=== PATIENT | male | born 1955 | race Hispanic/Latino ===

== ENCOUNTER 2018-09-26 01:44 | Emergency (ER) | payer OTHER ==
--- NOTE | 2018-09-26 03:37 | ER ---
Nurse's Notes [facility] Name: Kervin Martinez Age: 62 yrs Sex: Male : 1955 Arrival Date: 09/26/2018 Time: 01:51 Bed 7 Private MD: Javan Barrera B Diagnosis: Fever presenting with conditions classified elsewhere;Influenza due to other identified influenza virus Presentation: 09/26 02:03 Presenting complaint: Patient states: pt states he has had a cough, and sniffles with a bb runny nose x 2 days tonight he started running a fever it was 103 he has had a splenectomy in the past and told to come to ED if he starts running a fever. Transition of care: patient was not received from another setting of care. Onset of symptoms was September 24, 2018. Risk Assessment: Do you want to hurt yourself or someone else? Patient reports no desire to harm self or others. Initial Sepsis Screen: Does the patient meet any 2 criteria? No. Patient's initial sepsis screen is negative. Does the patient have a suspected source of infection? No. Patient's initial sepsis screen is negative. Care prior to arrival: None. 02:03 Method Of Arrival: Ambulatory bb 02:03 Acuity: PRABHAKAR 3 bb Historical: - Allergies: 02:08 No Known Allergies; bb - Home Meds: 02:08 Crestor 20 mg oral tab 1 tab once daily [Active]; Eliquis 5 mg oral tab 1 tab 2 times bb per day [Active]; metoprolol succinate 100 mg oral Tb24 1 tab once daily [Active]; Janumet 50-1,000 mg oral tab 1 tab 2 times per day [Active]; valsartan 80 mg oral tab 1 tab once daily [Active]; ProAir HFA inhalation inhalation [Active]; sildenafil oral oral [Active]; - PMHx: 02:08 Atrial Fib; Diabetes - IDDM; Hypertension; High Cholesterol; CVA; bb - PSHx: 02:08 splenectomy; bb - Immunization history:: Adult Immunizations up to date. - Social history:: Smoking status: Patient/guardian denies using tobacco. - Ebola Screening: : No symptoms or risks identified at this time. Screenin:42 Abuse screen: Denies threats or abuse. Denies injuries from another. Nutritional ak1 screening: No deficits noted. Tuberculosis screening: No symptoms or risk factors identified. Fall Risk None identified. Assessment: 02:15 General: Appears in no apparent distress. Behavior is calm, cooperative, appropriate lp1 for age. Pain: Denies pain. Neuro: Level of Consciousness is awake, alert, obeys commands. Cardiovascular: Patient's skin is warm and dry. Respiratory: Reports cough that is productive, labored breathing Respiratory effort is even, unlabored, Respiratory pattern is regular, symmetrical, Breath sounds are clear bilaterally. GI: No deficits noted. : No signs and/or symptoms were reported regarding the genitourinary system. EENT: Reports nasal congestion. Derm: Skin is pink, warm \T\ dry. Musculoskeletal: No deficits noted. Vital Signs: 02:08 BP 160 / 79; Pulse 83; Resp 16 S; Temp 98.8(O); Pulse Ox 96% on R/A; Weight 113.4 kg bb (R); Height 5 ft. 8 in. (172.72 cm) (R); Pain 0/10; 03:42 BP 141 / 81; Pulse 86; Resp 18; Temp 100(TE); Pulse Ox 95% on R/A; ak1 02:08 Body Mass Index 38.01 (113.40 kg, 172.72 cm) bb ED Course: 01:51 Patient arrived in ED. es 01:52 Javan Barrera MD is Private Physician. es 02:05 Triage completed. bb 02:08 Arm band placed on Patient placed in an exam room, on a stretcher, on pulse oximetry. bb Family accompanied patient. 02:11 Esteban Crandall MD is Attending Physician. 02:56 Sofi Vickers, IZABEL is Primary Nurse. lp1 03:43 Patient has correct armband on for positive identification. Bed in low position. Call ak1 light in reach. Side rails up X 1. Adult w/ patient. Pulse ox on. NIBP on. 03:43 No provider procedures requiring assistance completed. Patient did not have IV access ak1 during this emergency room visit. 04:37 XRAY Chest Pa And Lat (2 Views) In Process Unspecified. EDMS Administered Medications: No medications were administered Outcome: 03:36 Discharge ordered by . gs 03:43 Discharged to home ambulatory, with family. ak1 03:43 Condition: stable 03:43 Discharge instructions given to patient, family, Instructed on discharge instructions, follow up and referral plans. Demonstrated understanding of instructions, follow-up care. 03:44 Patient left the ED. ak1 Signatures: Dispatcher [employer] Anamaria Schaeffer Brenda RN RN bb Sofi Vickers RN RN lp1 Roseanne Nicholas RN RN ak1 Esteban Crandall MD MD
--- NOTE | 2018-09-26 03:37 | EDPHYS ---
Physician Documentation [facility] Name: Kervin Martinez Age: 62 yrs Sex: Male : 1955 Arrival Date: 09/26/2018 Time: 01:51 Bed 7 Private MD: Javan Barrera B ED Physician Esteban Crandall HPI: 09/26 03:31 This 62 yrs old Male presents to ER via Ambulatory with complaints of Fever. gs 03:31 Onset: The symptoms/episode began/occurred yesterday. Modifying factors: there are no gs obvious modifying factors. Associated signs and symptoms: Pertinent positives: chills, cough. Severity of symptoms: At their worst the symptoms were moderate in the emergency department the symptoms are unchanged. The patient has experienced similar episodes in the past, a few times. The patient has been recently seen by a physician: the patient's primary care provider, with similar presenting complaints, was given a prescription for antibiotics. Historical: - Allergies: 02:08 No Known Allergies; bb - Home Meds: 02:08 Crestor 20 mg oral tab 1 tab once daily [Active]; Eliquis 5 mg oral tab 1 tab 2 times bb per day [Active]; metoprolol succinate 100 mg oral Tb24 1 tab once daily [Active]; Janumet 50-1,000 mg oral tab 1 tab 2 times per day [Active]; valsartan 80 mg oral tab 1 tab once daily [Active]; ProAir HFA inhalation inhalation [Active]; sildenafil oral oral [Active]; - PMHx: 02:08 Atrial Fib; Diabetes - IDDM; Hypertension; High Cholesterol; CVA; bb - PSHx: 02:08 splenectomy; bb - Immunization history:: Adult Immunizations up to date. - Social history:: Smoking status: Patient/guardian denies using tobacco. - Ebola Screening: : No symptoms or risks identified at this time. ROS: 03:31 All other systems are negative. gs Exam: 03:31 Head/Face: Normocephalic, atraumatic. Eyes: Pupils equal round and reactive to light, gs extra-ocular motions intact. Lids and lashes normal. Conjunctiva and sclera are non-icteric and not injected. Cornea within normal limits. Periorbital areas with no swelling, redness, or edema. ENT: Nares patent. No nasal discharge, no septal abnormalities noted. Tympanic membranes are normal and external auditory canals are clear. Oropharynx with no redness, swelling, or masses, exudates, or evidence of obstruction, uvula midline. Mucous membranes moist. Neck: Trachea midline, no thyromegaly or masses palpated, and no cervical lymphadenopathy. Supple, full range of motion without nuchal rigidity, or vertebral point tenderness. No Meningismus. Chest/axilla: Normal chest wall appearance and motion. Nontender with no deformity. No lesions are appreciated. Cardiovascular: Regular rate and rhythm with a normal S1 and S2. No gallops, murmurs, or rubs. Normal PMI, no JVD. No pulse deficits. Respiratory: Lungs have equal breath sounds bilaterally, clear to auscultation and percussion. No rales, rhonchi or wheezes noted. No increased work of breathing, no retractions or nasal flaring. Abdomen/GI: Soft, non-tender, with normal bowel sounds. No distension or tympany. No guarding or rebound. No evidence of tenderness throughout. Back: No spinal tenderness. No costovertebral tenderness. Full range of motion. Skin: Warm, dry with normal turgor. Normal color with no rashes, no lesions, and no evidence of cellulitis. MS/ Extremity: Pulses equal, no cyanosis. Neurovascular intact. Full, normal range of motion. Neuro: Awake and alert, GCS 15, oriented to person, place, time, and situation. Cranial nerves II-XII grossly intact. Motor strength 5/5 in all extremities. Sensory grossly intact. Cerebellar exam normal. Normal gait. 03:31 Constitutional: The patient appears alert, awake. Vital Signs: 02:08 BP 160 / 79; Pulse 83; Resp 16 S; Temp 98.8(O); Pulse Ox 96% on R/A; Weight 113.4 kg bb (R); Height 5 ft. 8 in. (172.72 cm) (R); Pain 0/10; 03:42 BP 141 / 81; Pulse 86; Resp 18; Temp 100(TE); Pulse Ox 95% on R/A; ak1 02:08 Body Mass Index 38.01 (113.40 kg, 172.72 cm) bb MDM: 02:22 Patient medically screened. 03:31 Differential diagnosis: viral Infection, bacterial infection, URI, pneumonia. Data gs reviewed: vital signs, nurses notes, lab test result(s), radiologic studies. Counseling: I had a detailed discussion with the patient and/or guardian regarding: the historical points, exam findings, and any diagnostic results supporting the discharge/admit diagnosis, lab results, radiology results, the need for outpatient follow up. Response to treatment: the patient's symptoms have mildly improved after treatment, and as a result, I will discharge patient. 09/26 02:23 Order name: Influenza Screen (a \T\ B); Complete Time: 03:19 gs 09/26 02:23 Order name: XRAY Chest Pa And Lat (2 Views) gs Administered Medications: No medications were administered Disposition: 09/26/18 03:36 Discharged to Home. Impression: Fever presenting with conditions classified elsewhere, Influenza due to other identified influenza virus. - Condition is Stable. - Discharge Instructions: Fever, Adult, Influenza, Adult. - Medication Reconciliation Form, Thank You Letter, Antibiotic Education, Prescription Opioid Use form. - Follow up: Private Physician; When: 2 - 3 days; Reason: Re-evaluation by your physician. Signatures: Dispatcher [employer] EDJessica Chandler RN RN bb Roseanne Nicholas RN RN ak1 Esteban Crandall MD MD Corrections: (The following items were deleted from the chart) 03:44 03:36 09/26/2018 03:36 Discharged to Home. Impression: Fever presenting with conditions ak1 classified elsewhere; Influenza due to other identified influenza virus. Condition is Stable. Forms are Medication Reconciliation Form, Thank You Letter, Antibiotic Education, Prescription Opioid Use. Follow up: Private Physician; When: 2 - 3 days; Reason: Re-evaluation by your physician. gs
--- NOTE | 2018-09-26 11:45 | RAD REPORT ---
EXAM DESCRIPTION: RAD - Chest Pa And Lat (2 Views) - 09/26/2018 4:37 am CLINICAL HISTORY: COUGH Chest pain. COMPARISON: Chest Single View dated 12/19/2015; Chest Pa And Lat (2 Views) dated 11/16/2015; CHEST PA AND LAT 2 VIEW dated 07/11/2011 FINDINGS: The lungs are clear. The heart is mildly enlarged in size with a tortuous thoracic aorta. No displaced fractures. Small hiatal hernia.
== END 2018-09-26 03:44 | disposition home or self-care (01) ==
LOC: ER 01:44
DX: J10.1 Influenza due to other identified influenza virus with other respiratory manifestations (principal); I48.91 Unspecified atrial fibrillation; E11.9 Type 2 diabetes mellitus without complications; E78.00 Pure hypercholesterolemia, unspecified; Z79.4 Long term (current) use of insulin; Z79.01 Long term (current) use of anticoagulants; Z86.73 Personal history of transient ischemic attack (TIA), and cerebral infarction without residual deficits
CPT/HCPCS: 71046; 87804; 99283

== ENCOUNTER 2021-02-13 04:21 | Emergency (ER) | payer OTHER ==
--- OUTSIDE RECORDS SUMMARY | 2021-02-13 04:24 | XMS REPORT | Continuity of Care Document ---
:1955 Author Organization [facility] t Address [address] [place] [address] Care Team Providers Name Role Phone Zora Barrera MD Primary Care Physician Kathia KINGSLEY Attending Clinician Unavailable Eugenio Rojo MD Attending Clinician Nelson Zazueta MD Attending Clinician Dl Padilla MD Attending Clinician Zora Barrera Attending Clinician Payers Payer Name Policy Type Policy Number Effective Date Expiration Date S nikhil AETNA [id number] 2020 [facility] MEDICAREAETNA 00:00:00 Hospital MEDICARE HMO/PPO [id number] 1-PresentHMO Problems Condition Condition Condition Status Onset Resolution Last Treating Co mments Source Name Details Category Date Date Treatment Clinician Date Pure Pure Disease Active Methodi hyperchole hyperchole 5-15 st sterolemia sterolemia 00:00: Ho spita 00 l FRANNIE FRANNIE Disease Active Methodi (obstructi (obstructi 8-09 st ve sleep ve sleep 00:00: Hospit a apnea) apnea) 00 l SOB SOB Disease Active [facility] (shortness (shortness 7-30 st of breath) of breath) 00:00: [facility] 00 l Mitral Mitral Disease Active [facility] valve valve 7-30 st disease disease 00:00: Hospita 00 l Basal cell Basal cell Disease Active M ethodi carcinoma carcinoma 4-30 st 00:00: Hospita 00 l Vertigo Vertigo Disease Active 2016-06 Methodi due to due to 2-11 st cerebrovas cerebrovas 00:00: Ho spita cular cular 00 l disease disease Vertigo, Vertigo, Disease Active 2016-06 Metho di benign benign 2-11 st positional positional 00:00: Ho spita , , 00 l unspecifie unspecifie d d laterality laterality Aortic Aortic Disease Active 2016-06 [facility] valve valve 0-02 st disorder disorder 00:00: Hospit a 00 l 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 ethodi late late 3-27 st effect of effect of 00:00: [facility] cerebrovas cerebrovas 00 l cular cular accident accident Cerebral Cerebral Disease Active Metho di infarction infarction 3-27 st due to due to 00:00: Hospita thrombosis thrombosis 00 l of of precerebra precerebra l artery l artery 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 230 st vestibular vestibular 00:00: Ho spita hypofuncti hypofuncti 00 l on of both on of both ears ears Oscillopsi Oscillopsi Disease Active 2015-06 M ethodi a a [address] [facility] 00:00: Hospita 00 l Hyperlipid Hyperlipid Disease Active 2015-06 M ethodi emia LDL emia LDL 2-28 st goal <70 goal <70 00:00: Hospit a 00 l Ataxia due Ataxia due Disease Active 2015-06 M ethodi to to [address] cerebrovas cerebrovas 00:00: Ho spita cular cular 00 l disease disease Vertigo, Vertigo, Disease Active 2015-06 Metho di benign benign 2-28 st positional positional 00:00: Ho spita 00 l 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 00:00: Ho spita is is 00 l Essential Essential Disease Active 2015-06 Met hodi hypertensi hypertensi 2-23 st on on 00:00: Hospita 00 l Atrial Atrial Disease Active 2015-06 [facility] fibrillati fibrillati 2- st on on 00:00: Hospita 00 l Chronic Chronic Disease Active 2015-06 [facility] bacteremia bacteremia 0-22 st 00:00: Hospita 00 l Cerebrovas Cerebrovas Disease Active 2015-06 [facility] cular cular 0 st accident accident 00:00: Hospit a (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 Splenic Splenic Disease Active Methodi abscess abscess 12-20 st 00:00: Hospita 00 l DYSARTHRIA Diagnosis Active 2016-11-07 Memoria FOLLOWING 06-22 08:36:00 l CEREBRAL 08:00: Martínez INFACTION; DYSARTHRIA 00 FOLLOWING CEREBRAL INFACTION; Active 06/22/2000 [facility] DYSARTHRIA Diagnosis Active 2017-01-01 Memoria FOLLOWING 06-22 16:23:00 l CERBRAL 08:00: Martínez INFACTION; DYSARTHRIA 00 C FOLLOWING CERBRAL INFACTION; C Active 06/22/2000 [facility] DYSARTHRIA Diagnosis Active 2016-09-01 Memoria FOLLOWING 06-22 07:34:00 l CEREBRAL 08:00: [place] INFARCTION DYSARTHRIA 00 FOLLOWING CEREBRAL INFARCTION Active 06/22/2000 [facility] Cancer Cancer Disease Active Methodi Hospita l Allergies, Adverse Reactions, Alerts This patient has no known allergies or adverse reactions. Family History Family Member Diagnosis Comments Start Date Stop Date Source Natural father Cancer [facility] Natural mother Alzheimer's disease [facility] Social History Social Habit Start Date Stop Date Quantity Comments Source Cigarettes smoked 2020-11-02 [facility] 00:00:00 Hospita day) - Reported Cigarette 2020-11-02 2020-11-02 [facility] pack-years 00:00:00 00:00:00 Hospital Tobacco use and 2020-11-02 2020-11-02 Never used [facility] exposure 00:00:00 00:00:00 Hospital Alcohol intake 2020-11-02 2020-11-02 Current [facility] 00:00:00 00:00:00 non-drinker of Hospital alcohol (finding) Social History 2017-01-18 2017-01-18 [facility] 04:59:00 04:59:00 History of tobacco 1986-12-19 Current smoker [facility] use 00:00:00 Hospital Sex Ass[birth year] At [birth year] [facility] 00:00:00 00:00:00 Hospital Smoking Status Start Date Stop Date Source Former smoker 2020-11-02 00:00:00 2020-11-02 00:00:00 [facility] Medications Ordered Filled Start Stop Current Ordering Indication Dosage Frequency Signature Comments Components Source Medication Medication Date Date Medication? Clinician (SIG) Name Name rivaroxaban Yes 20mg QD Take 1 Meth jonah (Xarelto) 8-05 tablet (20 st 20 mg 00:00: mg total) Hospita tablet 00 by mouth l daily. Xarelto 20 2020- No TAKE 1 Meth jonah mg tablet 7- 08-[address] 00:00: 00:00 MOUTH Hospita 00 :00 EVERY DAY l metoprolol Yes TAKE 1 Metho di succinate 6-[address] XL 00:00: MOUTH Hospita (TOPROL-XL) 00 EVERY DAY l 100 mg 24 hr tablet rivaroxaban 2020- No 20mg QD Take 1 Met hodi (Xarelto) 5-28 07- tablet (20 st 20 mg 00:00: 00:00 mg total) Hospit a tablet 00 :00 by mouth l daily. apixaban 2020- No [id number] TAKE 1 M ethodi (Eliquis) 5 11-15 05-[address] mg tablet 00:00: 00:00 MOUTH Hospit a 00 :00 TWICE A l DAY cholecalcif Yes Q7D Take by Met hodi cortney, 5-[address] vitamin D3, 13:58: a week. Hos darrin (Decara) 43 l 625 mcg (25,000 unit) capsule omega-3 Yes 1g Q.5D Take 1 g Method i acid ethyl 5-[address] esters 13:58: (two) Hospita (LOVAZA) 1 43 times a l gram day. capsule sitaGLIPtin Yes Take 1 Meth jonah -metformin 5-14 tablet(s) st (JUNUMET 13:52: every day Hosp [facility] XR) 47 by oral l 50-1,000 mg route for tablet, ER 30 days. multiphase PRN 24 hr albuterol Yes 2{puff} Q6H Inhale 2 M ethodi (PROAIR 5-[address] HFA,PROVENT 13:52: every 6 Hos darrin [place] 47 (six) l HFA,VENTOLI hours as N HFA) 90 needed for mcg/actuati wheezing. on inhaler sildenafil Yes 100mg Take 100 Me thodi (VIAGRA) 5-[address] 100 MG 13:52: mouth as Hospita tablet 47 needed for l erectile dysfunctio n. 1/2 tab every 3 days ezetimibe Yes 10mg QD Take 10 mg Me thodi (ZETIA) 10 5-[address] mg tablet 13:52: nightly. Hosp [facility] 47 l repaglinide Yes .5mg QD Take 0.5 Me thodi (PRANDIN) 5-[address] 0.5 MG 13:52: mouth Hospita tablet 47 daily. l apixaban 2020- No [id number] TAKE 1 M ethodi (Eliquis) 5 10-15- TABLET BY st mg tablet 00:00: 00:00 MOUTH Hospit a 00 :00 TWICE A l DAY metoprolol 2020- No TAKE 1 Meth jonah succinate 09-[address] XL 00:00: 00:00 MOUTH Hospita (TOPROL-XL) 00 :00 EVERY DAY l 100 mg 24 hr tablet apixaban 2020- No [id number] TAKE 1 M ethodi (Eliquis) 5 06-[address] mg tablet 00:00: 00:00 MOUTH Hospit a 00 :00 TWICE A l DAY metoprolol 2020- No 100mg QD Take 1 Met hodi succinate 06-[address] XL 00:00: 00:00 (100 mg Hospita (TOPROL-XL) 00 :00 total) by l 100 mg 24 mouth hr tablet daily. apixaban 2020- No [id number] TAKE 1 M ethodi (Eliquis) 5 03-[address] mg tablet 00:00: 00:00 MOUTH Hospit a 00 :00 TWICE A l DAY metoprolol No TAKE 1 Meth jonah succinate 03-[address] XL 00:00: 00:00 MOUTH Hospita (TOPROL-XL) 00 :00 EVERY DAY l 100 mg 24 hr tablet apixaban No [id number] TAKE 1 M ethodi (Eliquis) 5 12-[address] mg tablet 00:00: 00:00 MOUTH Hospit a 00 :00 TWICE A l DAY metoprolol No 100mg QD Take 1 Met hodi succinate 12-[address] XL 00:00: 00:00 (100 mg Hospita (TOPROL-XL) 00 :00 total) by l 100 mg 24 mouth hr tablet daily. potassium No [id number] 20meq Take 1 Methodi chloride 03-10 tablet (20 st (K-DUR) 20 00:00: 00:00 mEq total) Hospita MEQ CR 00 :00 by mouth l tablet as needed (Edema). furosemide No [id number] 20mg Take 1 Methodi (LASIX) 20 03-10 tablet (20 st mg tablet 00:00: 00:00 mg total) Ho spita 00 :00 by mouth l as needed (Edema). rosuvastati Yes 20mg QD Take 20 mg Methodi n (CRESTOR) 02-[address] 20 MG 00:00: daily. Hospita tablet 00 l valsartan 2015-06 Yes 80mg QD Take 80 mg Me thodi (DIOVAN) 80 2-[address] MG tablet 00:00: daily. Hospit a 00 l Immunizations Ordered Immunization Filled Immunization Date Status Commen ts Source Name Name Hib (PRP-T) 2015-12-27 Completed [facility] 00:[facility]:00 [facility] Pneumococcal 2015-12-26 Completed [facility] Polysaccharide 00:00:00 Hospital Vital Signs Vital Name Observation Time Observation Value Comments Source BMI 2020-11-02 13:54:00 36.95 kg/m2 Method[facility] t [facility] Systolic blood 2020-11-02 13:54:00 162 mm[Hg] Method ist Hospital pressure Diastolic blood 2020-11-02 13:54:00 88 mm[Hg] Metho dist Hospital pressure Heart rate 2020-11-02 13:54:00 64 /min [facility] Body height 2020-11-02 13:54:00 172.7 cm [facility] Body weight 2020-11-02 13:54:00 110.224 kg [facility] Body temperature 2020-03-21 16:07:00 36.28 Maddie Meth [facility] Systolic (mm Hg) 2016-09-29 15:17:00 Maxi rial [place] Diastolic (mm Hg) 2016-09-29 15:17:00 Mem orial [place] Systolic (mm Hg) 2016-09-22 16:38:00 Maxi rial [place] Diastolic (mm Hg) 2016-09-22 16:38:00 Mem orial [place] Systolic (mm Hg) 2016-09-15 17:47:00 Maxi rial [place] Diastolic (mm Hg) 2016-09-15 17:47:00 Mem orial [place] Systolic (mm Hg) 2016-08-25 18:57:00 Maxi rial [place] Diastolic (mm Hg) 2016-08-25 18:57:00 Mem orial [place] Systolic (mm Hg) 2016-08-18 21:38:00 Maxi rial [place] Diastolic (mm Hg) 2016-08-18 21:38:00 Mem orial [place] Systolic (mm Hg) 2016-08-15 15:55:00 Maxi rial [place] Diastolic (mm Hg) 2016-08-15 15:55:00 Mem orial [place] Heart Rate 2016-08-15 15:55:00 [facility] [place] Systolic (mm Hg) 2016-07-28 18:43:00 Maxi rial [place] Diastolic (mm Hg) 2016-07-28 18:43:00 Mem orial [place] Heart Rate 2016-07-25 18:54:00 [facility] Systolic (mm Hg) 2016-07-25 18:54:00 Maxi rial [place] Diastolic (mm Hg) 2016-07-25 18:54:00 Mem orial [place] Systolic (mm Hg) 2016-07-21 16:14:00 Maxi rial [place] Diastolic (mm Hg) 2016-07-21 16:14:00 Mem orial [place] Heart Rate 2016-07-11 21:28:00 [facility] [place] Heart Rate 2016-06-30 14:59:00 [facility] Procedures Procedure Date / Time Performed Performing Clinician Sourc e ECG 12-LEAD 2020-11-02 12:58:32 Hoang Rojo US CAROTID DUPLEX 2020-03-21 18:00:00 [facility], [facility] BILATERAL PV TRANSCRANIAL DOPPLER 2020-03-21 18:00:00 [facility], [facility] INTRACRANIAL ARTERIES COMPLETE Plan of Care Planned Activity Planned Date Details Comments Source Future Scheduled Test COVID-19 VACCINE (1) [facility] [code = COVID-19 VACCINE (1)] Future Scheduled Test Hepatitis C screening [facility] (procedure) [code = 029112526] Future Scheduled Test COLONOSCOPY SCREENING [facility] [code = COLONOSCOPY SCREENING] Future Scheduled Test SHINGLES VACCINES (#1) [facility] [code = SHINGLES VACCINES (#1)] Future Scheduled Test 65+ PNEUMOCOCCAL Me [facility] VACCINE (2 of 2) [code = 65+ PNEUMOCOCCAL VACCINE (2 of 2)] Future Scheduled Test INFLUENZA VACCINE [code [facility] = INFLUENZA VACCINE] Encounters Start End Encounter Admission Attending Care Care Encounter Source Date/Time Date/Time Type Type Clinicians Facility Department ID 2021-01-24 2021-01-24 Orders David Bae 1.2.840.1 [id number] Methodi 00:00:00 00:00:[address] 3.430.2.7 Hospit a .3.258171 l .8 2021-01-10 2021-01-10 Leslie Rojo 1.2.840.1 [id number] Methodi 00:00:00 00:00:00 Hoang Becker [address] 3.430.2.7 Hospit a .3.960034 l .8 2020-11-17 2020-11-17 Leslie Rojo 1.2.840.1 [id number] Methodi 00:00:00 00:00:00 Hoang Becker [address] 3.430.2.7 Hospit a .3.007859 l .8 2020-11-16 2020-11-16 Telephone David Bae 1.2.840.1 [id number] Methodi 00:00:00 00:00:[address] 3.430.2.7 Hospit a .3.642625 l .8 2020-11-16 2020-11-16 Orders Kathia, David 1.2.840.1 [id number] Methodi 00:00:00 00:00:[address] 3.430.2.7 Hospit a .3.755607 l .8 2020-11-15 2020-11-15 Orders Le, David 1.2.840.1 [id number] 2099 [id number] Methodi 00:00:00 00:00:[address] 3.430.2.7 Hospit a .3.911479 l .8 2020-11-02 2020-11-02 Office Konstantin 1.2.840.1 [id number] 0922 Methodi 08:43:43 10:11:17 Visit Hoang Becker 08685.1.[address] 3.430.2.7 Hospit a .3.099591 l .8 2020-11-02 2020-11-02 Outpatient KONSTANTIN [facility] [id number] [address] [place] [address] 00:00:00 00:00:[address] 2020-11-02 2020-11-02 Travel 1.2.840.1 1.2.735.499 [id number] Methodi 00:00:00 00:00:[address] 3.430.2.7 0.2.7.3.698 Ho spita .3.931908 084.8 l .8 2020-10-18 2020-10-18 Office ROLF Zazueta 1.2.840.114 [id number] 09:37:21 10:18:37 Visit Erendira Damon AMBULATOR 350.1.13.21 Y 0.2.7.2.686 [id number] 800 2020-10-15 2020-10-15 Refill Konstantin 1.2.840.1 [id number] 2582 Methodi 00:00:00 00:00:00 [address] 3.430.2.7 Hospit a .3.740987 l .8 2020-10-05 2020-10-05 Travel 1.2.840.1 1.2.576.048 5316 167967 Methodi 00:00:00 00:00:[address] 3.430.2.7 0.2.7.3.698 Ho spita .3.042809 084.8 l .8 2020-10-03 2020-10-03 Travel 1.2.840.1 1.2.774.656 6709 026347 Methodi 00:00:00 00:00:[address] 3.430.2.7 0.2.7.3.698 Ho spita .3.286972 084.8 l .8 2020-09-28 2020-09-28 Office ROLF Zazueta 1.2.840.114 [id number] 09:57:05 10:27:34 Visit Erendira Damon AMBULATOR 350.1.13.21 Y 0.2.7.2.686 [id number] 800 2020-09-26 2020-09-26 Refill Konstantin 1.2.840.1 [id number] Methodi 00:00:00 00:00:[address] 3.430.2.7 Hospit a .3.644852 l .8 2020-09-19 2020-09-19 Telephone David Bae 1.2.840.1 [id number] Methodi 00:00:00 00:00:[address] 3.430.2.7 Hospit a .3.039047 l .8 2020-09-18 2020-09-18 Office ROLF Zazueta 1.2.840.114 [id number] 11:46:12 13:14:55 Visit Eerndira Damon AMBULATOR 350.1.13.21 Y 0.2.7.2.686 [id number] 800 2020-06-27 2020-06-27 Refill Konstantin 1.2.840.1 [id number] Methodi 00:00:00 00:00:[address] Hoang [address] 3.430.2.7 Hospit a .3.325204 l .8 2020-05-03 2020-05-03 Telephone Adrianna Padilla 1.2.840.1 [id number] Methodi 00:00:00 00:00:[address] 3.430.2.7 Hospit a .3.602246 l .8 2020-04-13 2020-04-13 Office ROLF Zazueta 1.2.840.114 [id number] 08:11:31 08:48:37 Visit Erendira Damon AMBULATOR 350.1.13.21 Y 0.2.7.2.686 [id number] 800 2020-04-13 2020-04-13 Telephone David Bae 1.2.840.1 [id number] 21 [id number] Methodi 00:00:00 00:00:[address] 3.430.2.7 Hospit a .3.874575 l .8 2020-03-21 2020-03-21 Office Adrianna Padilla 1.2.840.1 [id number] 21 [id number] Methodi 11:01:54 13:12:23 Visit Dl 46855.1.[address] 3.430.2.7 Hospit a .3.665292 l .8 2020-03-21 2020-03-21 Outpatient VOLLISA, ADRIANNA [facility] 003 [id number] [place] 00:00:00 00:00:[address] 2020-03-21 2020-03-21 Outpatient VOLLISA, ADRIANNA [facility] [id number] [place] 00:00:00 00:00:[address] 2020-03-21 2020-03-21 Outpatient VOLPI, ADRIANNA [facility] [id number] [place] 00:00:00 00:00:[address] 2020-03-21 2020-03-21 Travel 1.2.840.1 1.2.036.577 3824 [id number] Methodi 00:00:00 00:00:[address] 3.430.2.7 0.2.7.3.698 Ho spita .3.859341 084.8 l .8 2020-03-21 2020-03-21 Refill Rojo, 1.2.840.1 [id number] 2188 Methodi 00:00:00 00:00:[address] Hoang Becker [address]1.[address] 3.430.2.7 Hospit a .3.570098 l .8 2019-12-09 2019-12-09 Office ROLF Zazueta 1.2.840.114 [id number] 08:28:26 08:55:18 Visit Erendira Damon AMBULATOR 350.1.13.21 Y 0.2.7.2.686 [id number] 800 2019-11-18 2019-11-18 Office ROLF Zazueta 1.2.840.114 [id number] 21 08:17:36 09:24:25 Visit Erendira Damon AMBULATOR 350.1.13.21 Y 0.2.7.2.686 [id number] 800 2019-09-01 2019-09-01 Office ROLF Zazueta 1.2.840.114 [id number] 10:24:01 11:00:22 Visit Erendira Damon AMBULATOR 350.1.13.21 Y 0.2.7.2.686 [id number] 800 2019-04-12 2019-04-12 Office ROLF Zazueta 1.2.840.114 [id number] 09:36:17 10:16:57 Visit Erendira Damon AMBULATOR 350.1.13.21 Y 0.2.7.2.686 [id number] 800 2019-03-11 2019-03-11 Office ROLF Zazueta 1.2.840.114 [id number] 09:31:49 10:11:02 Visit Erendira Damon AMBULATOR 350.1.13.21 Y 0.2.7.2.686 [id number] 800 2016-12-19 2017-01-18 Tots nullFlavo [facility] [id number] Memoria 13:00:00 04:59:00 Therapy r [facility] 04 scott Soliz 2016-12-19 2017-01-17 Outpatient Bruce, [facility] [id number] 08:00:00 23:59:00 Javan B 2016-11-07 2016-12-07 Tots nullFlavo [facility] [id number] Memoria 13:00:00 04:59:00 Therapy r [facility] scott Soliz 2016-11-07 2016-12-06 Outpatient Bruce, [facility] [id number] 08:00:00 23:59:00 Javan B 2016-10-03 2016-11-02 Tots nullFlavo [facility] [id number] 94 Memoria 13:00:00 04:59:00 Therapy r [facility] scott Soliz [place] 2016-10-03 2016-11-01 Outpatient Bruce, [facility] [id number] 08:00:00 23:59:00 Javan B 2016-09-01 2016-10-01 Tots nullFlavo [facility] [id number] Memoria 12:00:00 04:59:00 Therapy r [facility] scott Soliz 2016-09-01 2016-09-30 Outpatient Bruce, [facility] [id number] 07:00:00 23:59:00 Javan B 2016-07-31 2016-08-30 Tots nullFlavo [facility] [id number] Memoria 14:00:00 05:59:00 Therapy r [facility] scott Soliz 2016-07-31 2016-08-29 Outpatient Bruce, [facility] [id number] 08:00:00 23:59:00 Javan B 00 2016-06-30 2016-07-30 Tots nullFlavo [facility] [id number] Memoria 14:00:00 05:59:00 Therapy r [facility] 00 scott Soliz [place] 2016-06-30 2016-07-29 Outpatient Bruce, [facility] [id number] 08:00:00 23:59:00 Javan B 00 Results Test Description Test Time Test Comments Results Result Comments Source ECG 12 lead 2020-11-02 19:25:57 Test Item Value Reference Range Interpretation Comme nts Ventricular rate (test code = 253) Atrial rate (test code = 255) QRSD interval (test code = 260) QT interval (test code = 264) QTC interval (test code = 265) QRS axis 1 (test code = 268) T wave axis (test code = 270) EKG impression (test code = 273) Atrial fibrillation- [facility]
[2021-02-13] MEDS ORDERED: OXYMETAZOLINE HCL 0.05% 15ML NAS ONE (06:32)
[2021-02-13] MEDS ORDERED: SILVER NITRATE 1 APPL TOP ONE ×2 (06:32→06:33)
--- NOTE | 2021-02-13 06:57 | EDPHYS ---
Physician Documentation [facility] Name: Kervin Martinez Age: 65 yrs Sex: Male : 1955 Arrival Date: 02/13/2021 Time: 04:27 Bed 12 Private MD: ED Physician Alejandro Canchola HPI: 02/13 05:45 This 65 yrs old Male presents to ER via Ambulatory with complaints of Nose mh7 Bleed. 05:45 The patient presents with a nose bleed, that is apparently anterior, from the right mh7 nare. Onset: The symptoms/episode began/occurred last night. Modifying factors: The symptoms are alleviated by pressure, the symptoms are aggravated by nothing. Associated signs and symptoms: Loss of consciousness: the patient experienced no loss of consciousness, Pertinent negatives: blurred vision, chest pain, cough, ear ache, fever, lightheadedness, nausea, rhinorrhea, shortness of breath, sore throat, vertigo. Severity of symptoms: At their worst the symptoms were moderate last night, in the emergency department the symptoms have improved moderately. The patient has experienced similar episodes in the past, several times. Historical: - Allergies: 04:49 No Known Allergies; bb - Home Meds: 06:38 Crestor 20 mg Oral tab 1 tab once daily [Active]; Eliquis 5 mg Oral tab 1 tab 2 times bs2 per day [Active]; Janumet 50-1,000 mg Oral tab 1 tab 2 times per day [Active]; metoprolol succinate 100 mg Oral Tb24 1 tab once daily [Active]; ProAir HFA inhalation [Active]; sildenafil Oral [Active]; valsartan 80 mg Oral tab 1 tab once daily [Active]; - PMHx: 06:38 Atrial Fib; CVA; Diabetes - IDDM; High Cholesterol; Hypertension; bs2 - Immunization history:: Adult Immunizations up to date, Client reports having NOT received the Covid vaccine. - Social history:: Smoking status: Patient denies any tobacco usage or history of. ROS: 05:45 Constitutional: Negative for fever, chills, and weight loss, Eyes: Negative for injury, mh7 pain, redness, and discharge, Neck: Negative for injury, pain, and swelling, Cardiovascular: Negative for chest pain, palpitations, and edema, Respiratory: Negative for shortness of breath, cough, wheezing, and pleuritic chest pain, Abdomen/GI: Negative for abdominal pain, nausea, vomiting, diarrhea, and constipation, Back: Negative for injury and pain, : Negative for injury, bleeding, discharge, and swelling, MS/Extremity: Negative for injury and deformity, Skin: Negative for injury, rash, and discoloration, Neuro: Negative for headache, weakness, numbness, tingling, and seizure, Psych: Negative for depression, anxiety, suicide ideation, homicidal ideation, and hallucinations, Allergy/Immunology: Negative for hives, rash, and allergies, Endocrine: Negative for neck swelling, polydipsia, polyuria, polyphagia, and marked weight changes, Hematologic/Lymphatic: Negative for swollen nodes, abnormal bleeding, and unusual bruising. Exam: 05:45 Constitutional: This is a well developed, well nourished patient who is awake, alert, mh7 and in no acute distress. Head/Face: Normocephalic, atraumatic. Eyes: Pupils equal round and reactive to light, extra-ocular motions intact. Lids and lashes normal. Conjunctiva and sclera are non-icteric and not injected. Cornea within normal limits. Periorbital areas with no swelling, redness, or edema. Neck: Trachea midline, no thyromegaly or masses palpated, and no cervical lymphadenopathy. Supple, full range of motion without nuchal rigidity, or vertebral point tenderness. No Meningismus. Chest/axilla: Normal chest wall appearance and motion. Nontender with no deformity. No lesions are appreciated. Cardiovascular: Regular rate and rhythm with a normal S1 and S2. No gallops, murmurs, or rubs. Normal PMI, no JVD. No pulse deficits. Respiratory: Lungs have equal breath sounds bilaterally, clear to auscultation and percussion. No rales, rhonchi or wheezes noted. No increased work of breathing, no retractions or nasal flaring. Abdomen/GI: Soft, non-tender, with normal bowel sounds. No distension or tympany. No guarding or rebound. No evidence of tenderness throughout. Back: No spinal tenderness. No costovertebral tenderness. Full range of motion. Skin: Warm, dry with normal turgor. Normal color with no rashes, no lesions, and no evidence of cellulitis. MS/ Extremity: Pulses equal, no cyanosis. Neurovascular intact. Full, normal range of motion. Neuro: Awake and alert, GCS 15, oriented to person, place, time, and situation. Cranial nerves II-XII grossly intact. Motor strength 5/5 in all extremities. Sensory grossly intact. Cerebellar exam normal. Normal gait. Psych: Awake, alert, with orientation to person, place and time. Behavior, mood, and affect are within normal limits. Vital Signs: 04:47 BP 143 / 74; Pulse 70; Resp 16 S; Temp 98.4(O); Pulse Ox 98% on R/A; Weight 110.22 kg bb (R); Height 5 ft. 8 in. (172.72 cm) (R); Pain 0/10; 04:47 Body Mass Index 36.95 (110.22 kg, 172.72 cm) bb Procedures: 06:55 Epistaxis treatment: A small amount of bleeding noted from right nare. Treated using [facility] Oxymetazoline sprays, cauterization, silver nitrate, Bleeding stopped. MDM: 06:55 Differential diagnosis: foreign body - resolved, foreign body - unresolved, epistaxis 7 r/t trauma, spontaneous epistaxis. Data reviewed: vital signs, nurses notes. Data interpreted: Pulse oximetry: on room air is 98 %. Interpretation: normal. Counseling: I had a detailed discussion with the patient and/or guardian regarding: the historical points, exam findings, and any diagnostic results supporting the discharge/admit diagnosis, the need for outpatient follow up, an ENT specialist, to return to the emergency department if symptoms worsen or persist or if there are any questions or concerns that arise at home. Response to treatment: the patient's symptoms have resolved after treatment, the patient's blood pressure is in an acceptable range, mental status has returned to baseline, the patient no longer shows bradycardia, the patient is not short of breath, the patient is not tachycardic, the patient's pain is gone, the patient's temperature has normalized. 06:57 Patient medically screened. [facility] Administered Medications: 06:16 Drug: Afrin (oxymetazoline) Drops (0.05 %) 1 sprays Route: Intranasal; Site: both nares;bs2 06:38 Drug: Silver Nitrate Applicators 1 application Route: Topical; Site: affected area; bs2 Disposition Summary: 02/13/21 06:57 Discharge Ordered Location: Home [facility] Problem: an acute exacerbation [facility] Symptoms: have improved [facility] Condition: Stable [facility] Diagnosis - Epistaxis [facility] Followup: [facility] - With: Private Physician - When: 1 - 2 days - Reason: Worsening of condition, Recheck today's complaints, Continuance of care, Re-evaluation by your physician Followup: [facility] - With: Britney Lockett MD - When: 1 - 2 days - Reason: Worsening of condition, Recheck today's complaints Discharge Instructions: - Discharge Summary Sheet [facility] - Nosebleed, Adult, [id number] [facility] Forms: - Medication Reconciliation Form [facility] - Thank You Letter [facility] - Antibiotic Education [facility] - Prescription Opioid Use [facility] Prescriptions: - Afrin (oxymetazoline) 0.05 % Nasal spray,non-aerosol - spray 2 spray by INTRANASAL route 2 times per day for 3 days; 1 bottle; [facility] Refills: 0, Product Selection Permitted - mupirocin 2 % Topical ointment - apply 1 application by TOPICAL route 3 times per day As needed; 1 tube; [facility] Refills: 0, Product Selection Permitted Signatures: Jessica Chavez, RN RN bb Alejandro Canchola MD MD 7 Claudette Alston RN RN bs2
--- NOTE | 2021-02-13 06:57 | ER ---
Nurse's Notes [facility] Name: Kervin Martinez Age: 65 yrs Sex: Male : 1955 Arrival Date: 02/13/2021 Time: 04:27 Bed 12 Private MD: Diagnosis: Epistaxis Presentation: 02/13 04:47 Chief complaint: Patient states: his nose started bleeding around midnight and he can't bb get it to stop bleeding is from right nares. Coronavirus screen: At this time, the client does not indicate any symptoms associated with coronavirus-19. Ebola Screen: No symptoms or risks identified at this time. Initial Sepsis Screen: Does the patient meet any 2 criteria? No. Patient's initial sepsis screen is negative. Does the patient have a suspected source of infection? No. Patient's initial sepsis screen is negative. Risk Assessment: Do you want to hurt yourself or someone else? Patient reports no desire to harm self or others. Onset of symptoms was February 13, 2021. 04:47 Method Of Arrival: Ambulatory bb 04:47 Acuity: PRABHAKAR 4 bb Triage Assessment: 04:49 General: Appears in no apparent distress. Behavior is calm, cooperative. Pain: Denies bb pain. EENT: Reports bleeding from right nares since midnight. Neuro: Level of Consciousness is awake, alert, obeys commands, Oriented to person, place, time, situation. Cardiovascular: Capillary refill < 3 seconds Patient's skin is warm and dry. Respiratory: Respiratory effort is even, unlabored, Respiratory pattern is regular. GI: No signs and/or symptoms were reported involving the gastrointestinal system. Derm: Skin is pink, warm \T\ dry. Musculoskeletal: Circulation, motion, and sensation intact. Historical: - Allergies: 04:49 No Known Allergies; bb - Home Meds: 06:38 Crestor 20 mg Oral tab 1 tab once daily [Active]; Eliquis 5 mg Oral tab 1 tab 2 times bs2 per day [Active]; Janumet 50-1,000 mg Oral tab 1 tab 2 times per day [Active]; metoprolol succinate 100 mg Oral Tb24 1 tab once daily [Active]; ProAir HFA inhalation [Active]; sildenafil Oral [Active]; valsartan 80 mg Oral tab 1 tab once daily [Active]; - PMHx: 06:38 Atrial Fib; CVA; Diabetes - IDDM; High Cholesterol; Hypertension; bs2 - Immunization history:: Adult Immunizations up to date, Client reports having NOT received the Covid vaccine. - Social history:: Smoking status: Patient denies any tobacco usage or history of. Screenin:55 Abuse screen: Denies threats or abuse. Nutritional screening: No deficits noted. bb Tuberculosis screening: No symptoms or risk factors identified. Fall Risk None identified. Assessment: 04:55 Reassessment: No changes from previously documented assessment. Patient is alert, bb oriented x 3, equal unlabored respirations, skin warm/dry/pink. see triage assessment. 05:00 EENT: Nares with bleeding noted on right Reports nasal discharge that is bloody. bs2 06:16 General: Appears in no apparent distress. obese, well groomed, well developed, well bs2 nourished, Behavior is calm, cooperative, appropriate for age. Pain: Denies pain. Vital Signs: 04:47 BP 143 / 74; Pulse 70; Resp 16 S; Temp 98.4(O); Pulse Ox 98% on R/A; Weight 110.22 kg bb (R); Height 5 ft. 8 in. (172.72 cm) (R); Pain 0/10; 04:47 Body Mass Index 36.95 (110.22 kg, 172.72 cm) bb ED Course: 04:27 Patient arrived in ED. bp1 04:49 Triage completed. bb 04:49 Arm band placed on Patient placed in an exam room. bb 04:55 Jessica Chavez, RN is Primary Nurse. bb 04:55 Patient has correct armband on for positive identification. Call light in reach. bb 05:00 Assist provider with nosebleed control using Afrin sprays, simple cauterization, nasal bs2 clamp, Bleeding from right nares. Performed by Alejandro Canchola MD. 05:03 Alejandro Canchola MD is Attending Physician. 7 06:39 Patient did not have IV access during this emergency room visit. bs2 06:56 Britney Lockett MD is Referral Physician. 7 Administered Medications: 06:16 Drug: Afrin (oxymetazoline) Drops (0.05 %) 1 sprays Route: Intranasal; Site: both nares;bs2 06:38 Drug: Silver Nitrate Applicators 1 application Route: Topical; Site: affected area; bs2 Outcome: 06:57 Discharge ordered by . jaylin 07:20 Discharged to home ambulatory. bs2 07:20 Condition: improved 07:20 Discharge instructions given to patient, Instructed on discharge instructions, follow up and referral plans. Demonstrated understanding of instructions, follow-up care, medications, Prescriptions given X 2. 07:21 Patient left the ED. bs2 Signatures: Jessica Chavez, RN RN Jennifer Matos Maurice, MD MD 7 Claudette Alston RN RN bs2
[2021-02-13 07:26] VITALS: BP 143/74; TEMP 98.4; O2SAT 98
== END 2021-02-13 07:21 | disposition home or self-care (01) ==
LOC: ER 04:21
PROC: 093K7ZZ Control Bleeding in Nasal Mucosa and Soft Tissue, Via Natural or Artificial Opening (ICD-10-PCS; principal; 2021-02-13)
DX: R04.0 Epistaxis (principal); I10 Essential (primary) hypertension; E11.9 Type 2 diabetes mellitus without complications; I48.91 Unspecified atrial fibrillation; Z79.01 Long term (current) use of anticoagulants
CPT/HCPCS: 30901; 99283

== ENCOUNTER 2022-02-10 09:24 | Emergency (ER) | payer OTHER ==
--- OUTSIDE RECORDS SUMMARY | 2022-02-10 09:32 | XMS REPORT | Continuity of Care Document ---
:1955 Author Organization [facility] t Address [address] [place] [address] Care Team Providers Name Role Phone Javan Barrera MD Primary Care Physician Ariel Barrera Attending Clinician Unavailable HOANG PRYOR Attending Clinician Unavailable Marbin VANCE, Erendira Damon Attending Clinician ERENDIRA DAVIS Attending Clinician Unavailable David Bae MA Attending Clinician Unavailable Valerie VANCE, Shine Lizama Attending Clinician Payers Payer Name Policy Type Policy Number Effective Date Expiration Date S nikhil MEDICARE PART A [id number] \T\ B - MEDICARE PPO/EPO - BCBS [id number] AETNA [id number] 2020 [employer] MEDICAREAETNA 00:00:00 [facility] MEDICARE HMO/PPO [id number] 1-PresentHMO Problems Condition [...] 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 [employer] 00:00: of 00 Medicin e 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 [facility] e vestibular vestibular 00:00: of hypofuncti hypofuncti 00 Me dicin on of both on of both e ears ears Hyperlipid Hyperlipid Disease Active 2015-06 M ethodi emia LDL emia LDL 2-28 st goal <70 goal <70 00:00: Hospit a 00 l 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 00:00: Ho spita cular cular 00 l disease disease Vertigo, Vertigo, Disease Active 2015-06 Metho di benign benign 2-28 st positional positional 00:00: Ho spita 00 l 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 00:00: Ho spita is is 00 l Essential Essential Disease Active 2015-06 [facility] hypertensi hypertensi 2-23 st on on 00:00: Hospita 00 l Atrial Atrial Disease Active 2015-06 [facility] fibrillati fibrillati 2-23 st on on 00:00: Hospita 00 l Chronic Chronic Disease Active 2015-06 [facility] bacteremia bacteremia 0 st 00:00: Hospita 00 l 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 00:00: Hospit a (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 Splenic Splenic Disease Active [facility] abscess abscess 12-20 st 00:00: Hospita 00 l DYSARTHRIA DYSARTHRI Diagnosis Active 2017-01-01 Memoria FOLLOWING A 06-22 16:23:00 l CERBRAL FOLLOWING 08:00: Kiran n INFACTION; CERBRAL 00 C INFACTION; C Active 06/22/2000 [facility] DYSARTHRIA DYSARTHRI Diagnosis Active 2016-09-01 Memoria FOLLOWING A 06-22 07:34:00 l CEREBRAL FOLLOWING 08:00: More nn INFARCTION CEREBRAL 00 INFARCTION Active 06/22/2000 [facility] DYSARTHRIA DYSARTHRI Diagnosis Active 2016-11-07 Memoria FOLLOWING A 06-22 08:36:00 l CEREBRAL FOLLOWING 08:00: More nn INFACTION; CEREBRAL 00 INFACTION; Active 06/22/2000 [facility] Cancer Cancer Disease Active Hospita l Allergies, Adverse Reactions, Alerts This patient has no known allergies or adverse reactions. Family History Family Member Diagnosis Comments Start Date Stop Date Source Natural father Cancer [facility] Natural mother Alzheimer's disease [facility] Social History Social Habit Start Date Stop Date Quantity Comments Source Exposure to Not sure [facility] e SARS-CoV-2 (event) of Med icine History [facility] ge Alcohol Frequency of Medi cine History [facility] ge Alcohol Std Drinks of Med icine History [facility] Alcohol Binge of Medicine Alcohol intake 2021-08-15 2021-08-15 Current [facility] legjohn 00:00:00 00:00:00 non-drinker of of Medicin e alcohol (finding) Cigarettes smoked 2020-11-02 2020-11-02 [facility] current (pack per 00:00:00 00:00:00 Hospita l day) - Reported Cigarette 2020-11-02 2020-11-02 [facility] pack-years 00:00:00 00:00:00 Hospital Social History 2017-01-18 2017-01-18 Lori desai 04:59:00 04:59:00 Tobacco use and 2016-08-07 2016-08-07 Smokeless tobacco [employer] exposure 00:00:00 00:00:00 non-user of Medicine Alcohol Comment 2016-08-07 2016-08-07 quit drinking 30 [facility] 00:00:00 00:00:00 years ago of Medicine History of tobacco 1986-12-19 Smoker Method ist use 00:00:00 Hospital Sex Ass[birth year] [facility] [employer] 00:00:00 00:00:00 of Medicine Smoking Status Start Date Stop Date Source Former smoker 2020-11-02 00:00:00 2020-11-02 [facility] Lizy ege of Medicine Medications Ordered Filled Start Stop Current Ordering Indication Dosage Frequency Signature Comments Components Source Medication Medication Date Date Medication? Clinician (SIG) Name Name SitaGLIPtin Yes Take 1 [facility] -MetFORMIN 2-24 tablet(s) Lizy ege HCl 50-1000 15:36: every day o f MG TB24 25 by oral Medicin route for e 30 days. PRN sildenafil Yes 100mg Take 100 [facility] citrate 2-24 mg by [facility] (VIAGRA) 15:36: mouth. of 100 MG 25 Medicin tablet e ezetimibe Yes 10mg Take 10 mg [employer] [facility] (ZETIA) 10 2-24 by mouth Colle ge MG tablet 15:36: daily. of 25 Medicin e repaglinide Yes .5mg Take 0.5 [facility] (PRANDIN) 2-24 mg by College 0.5 MG 15:36: mouth 3 of tablet 25 times Medicin daily e (before meals). SitaGLIPtin 2020-06 Yes Take 1 [facility] -MetFORMIN 1-18 tablet(s) Lizy ege HCl 50-1000 08:24: every day o f MG TB24 42 by oral Medicin route for e 30 days. PRN sildenafil 2020-06 Yes 100mg Take 100 [facility] citrate 1-18 mg [facility] 08:24: mouth. of 100 MG 42 Medicin tablet e ezetimibe 2020-06 Yes 10mg Take 10 mg [facility] (ZETIA) 10 1-18 by mouth Colle ge MG tablet 08:24: daily. of 42 Medicin e repaglinide 2020-06 Yes .5mg Take 0.5 [facility] (PRANDIN) 1-18 mg by [facility] 0.5 MG 08:24: mouth 3 of tablet 42 times Medicin daily e (before meals). cephALEXin 2020-06- No 500mg Take 1 [place] [facility] (KEFLEX) 1-18 11-24 capsule by Lizy ege 500 MG 00:00: 05:59 mouth 3 of capsule 00 :00 times Medicin daily for e 5 days. SitaGLIPtin Yes Take 1 [facility] -MetFORMIN 9-23 tablet(s) Liz[facility] e[facility] HCl 09:46: every day of (JANUMET 50 by oral Medicin XR) 50-1000 route for e MG TB24 30 days. PRN sildenafil 0 Yes 100mg Take 100 [facility] citrate 9-23 mg by [place] ([facility]) 09:46: mouth. of 100 MG 50 Medicin tablet e ezetimibe Yes 10mg Take 10 mg [facility] (ZETIA) 10 9-23 by mouth Colle ge MG tablet 09:46: daily. of 50 Medicin e repaglinide Yes .5mg Take 0.5 [facility] (PRANDIN) 9-23 mg by [place] 0.5 MG 09:46: mouth 3 of tablet 50 times Medicin daily e (before meals). SitaGLIPtin Yes Take 1 [facility] -MetFORMIN 9-23 tablet(s) Lizy ege HCl 09:46: every day of (JANUMET 50 by oral Medicin XR) 50-1000 route for e MG TB24 30 days. PRN sildenafil 2020-0 Yes 100mg Take 100 [facility] citrate 9-23 mg by [place] ([facility] 09:46: mouth. of 100 MG 50 Medicin tablet e ezetimibe 0 Yes 10mg Take 10 mg [facility] (ZETIA) 10 9-23 by mouth Colle ge MG tablet 09:46: daily. of 50 Medicin e repaglinide 0 Yes .5mg Take 0.5 [facility] (PRANDIN) 9-23 mg by [facility] 0.5 MG 09:46: mouth 3 of tablet 50 times Medicin daily e (before meals). SitaGLIPtin Yes Take 1 [facility] -MetFORMIN 9-02 tablet(s) Lizy e[facility] HCl 10:28: every day of (JANUMET 50 by oral Medicin XR) 50-1000 route for e MG TB24 30 days. PRN sildenafil 2020-0 Yes 100mg Take 100 [facility] citrate 9-02 mg by [facility] (VIAGRA) 10:28: mouth. of 100 MG 50 Medicin tablet e ezetimibe Yes 10mg Take 10 mg [facility] (ZETIA) 10 9-02 by mouth Colle ge MG tablet 10:28: daily. of 50 Medicin e repaglinide Yes .5mg Take 0.5 [facility] (PRANDIN) 9-02 mg by [place] 0.5 MG 10:28: mouth 3 of tablet 50 times Medicin daily e (before meals). SitaGLIPtin Yes Take 1 [facility] -MetFORMIN 9-02 tablet(s) Lizy ege HCl 10:28: every day of (JANUMET 50 by oral Medicin XR) 50-1000 route for e MG TB24 30 days. PRN sildenafil 2020-0 Yes 100mg Take 100 [facility] citrate 9-02 mg by [place] (VIAGR) 10:28: mouth. of 100 MG 50 Medicin tablet e ezetimibe Yes 10mg Take 10 mg [facility] (ZETIA) 10 9-02 by mouth Colle ge MG tablet 10:28: daily. of 50 Medicin e repaglinide 0 Yes .5mg Take 0.5 [facility] (PRANDIN) 9-02 mg by [place] 0.5 MG 10:28: mouth 3 of tablet 50 times Medicin daily e (before meals). SitaGLIPtin 0 Yes Take 1 [facility] -MetFORMIN 9-02 tablet(s) Lizy ege HCl 10:28: every day of (JANUMET 50 by oral Medicin XR) 50-1000 route for e MG TB24 30 days. PRN sildenafil 2020-0 Yes 100mg Take 100 [facility] citrate 9-02 mg by [place] ([facility] 10:28: mouth. of 100 MG 50 Medicin tablet e ezetimibe 2020-0 Yes 10mg Take 10 mg [facility] (ZETIA) 10 9-02 by mouth Colle ge MG tablet 10:28: daily. of 50 Medicin e repaglinide 2020-0 Yes .5mg Take 0.5 [facility] (PRANDIN) 9-02 mg by [place] 0.5 MG 10:28: mouth 3 of tablet 50 times Medicin daily e (before meals). SitaGLIPtin 0 Yes Take 1 [facility] -MetFORMIN 9-02 tablet(s) Lizy ege HCl 10:28: every day of (JANUMET 50 by oral Medicin XR) 50-1000 route for e MG TB24 30 days. PRN sildenafil 2020-0 Yes 100mg Take 100 [facility] citrate 9-02 mg by [place] ([facility] 10:28: mouth. of 100 MG 50 Medicin tablet e ezetimibe 0 Yes 10mg Take 10 mg [facility] (ZETIA) 10 9-02 by mouth Colle ge MG tablet 10:28: daily. of 50 Medicin e repaglinide 0 Yes .5mg Take 0.5 [facility] (PRANDIN) 9-02 mg by [place] 0.5 MG 10:28: mouth 3 of tablet 50 times Medicin daily e (before meals). mupirocin 2020-0 Yes Apply [facility] (BACTROBAN) 8-27 topically Col lege 2 % 00:00: to of ointment 00 affected Medicin area(s) as e directed twice daily mupirocin 2020-0 Yes Apply [facility] (BACTROBAN) 8-27 topically Col lege 2 % 00:00: to of ointment 00 affected Medicin area(s) as e directed twice daily mupirocin 2020-0 Yes Apply [facility] (BACTROBAN) 8-27 topically Col lege 2 % 00:00: to of ointment 00 affected Medicin area(s) as e directed twice daily mupirocin 2020-0 Yes Apply [facility] (BACTROBAN) 8-27 topically Col lege 2 % 00:00: to of ointment 00 affected Medicin area(s) as e directed twice daily mupirocin Yes Apply [facility] (BACTROBAN) 8-27 topically Col lege 2 % 00:00: to of ointment 00 affected Medicin area(s) as e directed twice daily mupirocin 0 Yes Apply [facility] (BACTROBAN) 8-27 topically Col lege 2 % 00:00: to of ointment 00 affected Medicin area(s) as e directed twice daily mupirocin 0 Yes Apply [facility] (BACTROBAN) 827 topically Col lege 2 % 00:00: to of ointment 00 affected Medicin area(s) as e directed twice daily mupirocin Yes Apply [facility] (BACTROBAN) 8-27 topically Col lege 2 % 00:00: to of ointment 00 affected Medicin area(s) as e directed twice daily cephALEXin 2020- No 500mg Take 1 [place] [facility] (KEFLEX) 02-15 capsule by Lizy ege 500 MG 00:00: 04:59 mouth 3 of capsule 00 :00 times Medicin daily for e 5 days. cephALEXin 2020- No 500mg Take 1 [place] [facility] (KEFLEX) 02-15 capsule by Lizy ege 500 MG 00:00: 04:59 mouth 3 of capsule 00 :00 times Medicin daily for e 5 days. rivaroxaban Yes 20mg QD Take 1 Meth jonah (Xarelto) 01-24 tablet (20 st 20 mg 00:00: mg total) Hospita tablet 00 by mouth l daily. Xarelto 20 2020- No TAKE 1 Meth jonah mg tablet 01-10 08-[address] 00:00: 00:00 MOUTH Hospita 00 :00 EVERY DAY l metoprolol Yes TAKE 1 Metho di succinate 6- TABLET BY st XL 00:00: MOUTH Hospita (TOPROL-XL) 00 EVERY DAY l 100 mg 24 hr tablet rivaroxaban 2020- No 20mg QD Take 1 [facility] h[facility] (Xarelto) 11-16 tablet (20 st 20 mg 00:00: 00:00 mg total) Hospit a tablet 00 :00 by mouth l daily. apixaban 2020- No [id number] TAKE 1 M ethodi (Eliquis) 5 5-27 05-[address] mg tablet 00:00: 00:00 MOUTH Hospit a 00 :00 TWICE A l DAY cholecalcif 0 Yes Q7D Take by Met h[facility] cortney, [...] 13:52: mouth Hospita tablet 47 daily. l SitaGLIPtin Yes Take 1 [facility] -MetFORMIN 4-29 tablet(s) Lizy ege HCl 09:53: every day of (T 28 by oral Medicin XR) 50-1000 route for e MG TB24 30 days. PRN sildenafil Yes 100mg Take 100 [facility] citrate 4-29 mg by [facility] (VIAGRA) 09:53: mouth. of 100 MG 28 Medicin tablet e ezetimibe Yes 10mg Take 10 mg [facility] (ZETIA) 10 4-29 by mouth Colle ge MG tablet 09:53: daily. of 28 Medicin e repaglinide Yes .5mg Take 0.5 [facility] (PRANDIN) 4-29 mg by [place] 0.5 MG 09:53: mouth 3 of tablet 28 times Medicin daily e (before meals). apixaban 2020- No [id number] TAKE 1 M ethodi (Eliquis) 5 10-[address] mg tablet 00:00: 00:00 MOUTH Hospit a 00 :00 TWICE A l DAY mupirocin Yes Apply [facility] (BACTROBAN) 09-28 topically Col lege 2 % 00:00: twice of ointment 00 daily Medicin e mupirocin 2020- No Apply [facility] (BACTROBAN) 09-28 topically Co llege 2 % 00:00: 00:00 twice of ointment 00 :00 daily Medicin e metoprolol 2020- No TAKE 1 Meth jonah succinate 09-[address] XL 00:00: 00:00 MOUTH Hospita (TOPROL-XL) 00 :00 EVERY DAY l 100 mg 24 hr tablet apixaban 2020- No [id number] TAKE 1 M ethodi (Eliquis) 5 06-[address] mg tablet 00:00: 00:00 MOUTH Hospit a 00 :00 TWICE A l DAY metoprolol 2020- No 100mg QD Take 1 Met hodi succinate 06-[address] XL 00:00: 00:00 (100 mg Hospita (TOPROL-XL) 00 :00 total) by l 100 mg 24 mouth hr tablet daily. apixaban 2020- No [id number] TAKE 1 M ethodi (Eliquis) 5 03-[address] mg tablet 00:00: 00:00 MOUTH Hospit a 00 :00 TWICE A l DAY metoprolol 2019-0 2020- No TAKE 1 Meth jonah succinate 9-30 - TABLET BY st XL 00:00: 00:00 MOUTH Hospita (TOPROL-XL) 00 :00 EVERY DAY l 100 mg 24 hr tablet apixaban 2019-0 2019- No [id number] TAKE 1 M ethodi (Eliquis) 5 12-27-[address] mg tablet 00:00: 00:00 MOUTH Hospit a 00 :00 TWICE A l DAY metoprolol 2019-0 2019- No 100mg QD Take 1 Met hodi succinate 12-25-[address] XL 00:00: 00:00 (100 mg Hospita (TOPROL-XL) 00 :00 total) by l 100 mg 24 mouth hr tablet daily. ezetimibe 2020-0 Yes 10mg Take 10 mg [facility] (ZETIA) 10 5-29 by mouth Colle ge MG tablet 13:48: daily. of 21 Medicin e repaglinide 2020-0 Yes .5mg Take 0.5 [facility] (PRANDIN) 5-29 mg by [place] 0.5 MG 13:48: mouth 3 of tablet 21 times Medicin daily e (before meals). ezetimibe 2020-0 Yes 10mg Take 10 mg [facility] (ZETIA) 10 5-29 by mouth Colle ge MG tablet 13:48: daily. of 21 Medicin e repaglinide 2020-0 Yes .5mg Take 0.5 [facility] (PRANDIN) 5-29 mg by [place] 0.5 MG 13:48: mouth 3 of tablet 21 times Medicin daily e (before meals). ezetimibe 2020-0 Yes 10mg Take 10 mg [facility] (ZETIA) 10 5-29 by mouth Colle ge MG tablet 13:48: daily. of 21 Medicin e repaglinide 2020-0 Yes .5mg Take 0.5 [facility] (PRANDIN) 5-29 mg by College 0.5 MG 13:48: mouth 3 of tablet 21 times Medicin daily e (before meals). ezetimibe 2020-0 Yes 10mg Take 10 mg [facility] (ZETIA) 10 5-29 by mouth Colle ge MG tablet 13:48: daily. of 21 Medicin e repaglinide 2020-0 Yes .5mg Take 0.5 [facility] (PRANDIN) 5-29 mg by [place] 0.5 MG 13:48: mouth 3 of tablet 21 times Medicin daily e (before meals). ezetimibe 2020-0 Yes 10mg Take 10 mg [facility] (ZETIA) 10 5-29 by mouth Colle ge MG tablet 13:48: daily. of 21 Medicin e repaglinide 2020-0 Yes .5mg Take 0.5 [facility] (PRANDIN) 5-29 mg by College 0.5 MG 13:48: mouth 3 of tablet 21 times Medicin daily e (before meals). Cholecalcif 2020-0 Yes TAKE 1 [facility] cortney 5-14 CAPSULE BY [place] (VITAMIN 00:00: MOUTH of D3) 1.25 MG 00 EVERY TWO Med icin (20890 UT) WEEKS e CAPS Cholecalcif 2020-0 Yes TAKE 1 [facility] cortney 5-14 CAPSULE BY [place] (VITAMIN 00:00: MOUTH of D3) 1.25 MG 00 EVERY TWO Med icin (41724 UT) WEEKS e CAPS Cholecalcif 2020-0 2020- No TAKE 1 [place] [facility] cortney 5-14 10-23 CAPSULE BY [place] (VITAMIN 00:00: 00:00 MOUTH of D3) 1.25 MG 00 :00 EVERY TWO Med icin (64963 UT) WEEKS e CAPS metoprolol 2020-0 Yes TAKE 1 [facility] (TOPROL-XL) 4-17 TABLET BY Col lege 100 MG XL 00:00: MOUTH of tablet 00 EVERY DAY Medicin e metoprolol 2020-0 Yes TAKE 1 [facility] (TOPROL-XL) 4-17 TABLET BY Col lege 100 MG XL 00:00: MOUTH of tablet 00 EVERY DAY Medicin e metoprolol 2020-0 Yes TAKE 1 [facility] (TOPROL-XL) 4-17 TABLET BY Col lege 100 MG XL 00:00: MOUTH of tablet 00 EVERY DAY Medicin e metoprolol 2020-0 Yes TAKE 1 [facility] (TOPROL-XL) 4-17 TABLET BY Col lege 100 MG XL 00:00: MOUTH of tablet 00 EVERY DAY Medicin e metoprolol 2020-0 Yes TAKE 1 [facility] (TOPROL-XL) 4-17 TABLET BY Col lege 100 MG XL 00:00: MOUTH of tablet 00 EVERY DAY Medicin e metoprolol 2020-0 Yes TAKE 1 [facility] (TOPROL-XL) 4-17 TABLET BY Col lege 100 MG XL 00:00: MOUTH of tablet 00 EVERY DAY Medicin e metoprolol 2020-0 Yes TAKE 1 [facility] (TOPROL-XL) 4-17 TABLET BY Col lege 100 MG XL 00:00: MOUTH of tablet 00 EVERY DAY Medicin e metoprolol 2020-0 Yes TAKE 1 [facility] (TOPROL-XL) 4-17 TABLET BY Col lege 100 MG XL 00:00: MOUTH of tablet 00 EVERY DAY Medicin e metoprolol 2020-0 Yes TAKE 1 [facility] (TOPROL-XL) 4-17 TABLET BY Col lege 100 MG XL 00:00: MOUTH of tablet 00 EVERY DAY Medicin e metoprolol 2020-0 Yes TAKE 1 [facility] (TOPROL-XL) 4-17 TABLET BY Col lege 100 MG XL 00:00: MOUTH of tablet 00 EVERY DAY Medicin e metoprolol 2020-0 Yes TAKE 1 [facility] (TOPROL-XL) 4-17 TABLET BY Col lege 100 MG XL 00:00: MOUTH of tablet 00 EVERY DAY Medicin e metoprolol 2020-0 Yes TAKE 1 [facility] (TOPROL-XL) 4-17 TABLET BY Col lege 100 MG XL 00:00: MOUTH of tablet 00 EVERY DAY Medicin e metoprolol 2020-0 Yes TAKE 1 [facility] (TOPROL-XL) 4-17 TABLET BY Col lege 100 MG XL 00:00: MOUTH of tablet 00 EVERY DAY Medicin e metoprolol 2020-0 Yes TAKE 1 [facility] (TOPROL-XL) 4-17 TABLET BY Col lege 100 MG XL 00:00: MOUTH of tablet 00 EVERY DAY Medicin e ciclopirox 2020-0 Yes [facility] [place] (LOPROX) 3-24 College 0.77 % 00:00: of cream 00 Medicin e ciclopirox 2020-0 Yes [facility] (LOPROX) 3-24 College 0.77 % 00:00: of cream 00 Medicin e ciclopirox 2020-0 Yes [facility] (LOPROX) 3-24 College 0.77 % 00:00: of cream 00 Medicin e ciclopirox 2020-0 Yes [facility] (LOPROX) 3 [place] 0.77 % 00:00: of cream 00 Medicin e ciclopirox 2020-0 Yes [facility] (LOPROX) 09-12 [place] 0.77 % 00:00: of cream 00 Medicin e ciclopirox 2020-0 2020- No [facility] (LOPROX) 09-12 04-29 [place] 0.77 % 00:00: 00:00 of cream 00 :00 Medicin e sildenafil 2020-0 Yes 100mg Take 100 [facility] citrate 3-12 mg by [facility] (VIAGRA) 15:43: mouth. of 100 MG 40 Medicin tablet e sildenafil 2020-0 Yes 100mg Take 100 [facility] citrate 3-12 mg by [facility] (VIAGRA) 15:43: mouth. of 100 MG 40 Medicin tablet e sildenafil 2020-0 Yes 100mg Take 100 [facility] citrate 3-12 mg by College (VIAGRA) 15:43: mouth. of 100 MG 40 Medicin tablet e sildenafil 2020-0 Yes 100mg Take 100 [facility] citrate 3-12 mg by [facility] (VIAGRA) 15:43: mouth. of 100 MG 40 Medicin tablet e sildenafil 2020-0 Yes 100mg Take 100 [facility] citrate 3-12 mg by [facility] (VIAGRA) 15:43: mouth. of 100 MG 40 Medicin tablet e sildenafil 2020-0 Yes 100mg Take 100 [facility] citrate 3-12 mg by [facility] (VIAGRA) 15:43: mouth. of 100 MG 40 Medicin tablet e mupirocin 2020-0 Yes Apply [facility] (BACTROBAN) 3-12 topically Col lege 2 % 00:00: as of ointment 00 directed Medicin twice e daily mupirocin 2020-0 Yes Apply [facility] (BACTROBAN) 3-12 topically Col lege 2 % 00:00: as of ointment 00 directed Medicin twice e daily mupirocin 2020-0 Yes Apply [facility] (BACTROBAN) 3-12 topically Col lege 2 % 00:00: as of ointment 00 directed Medicin twice e daily mupirocin 2020-0 Yes Apply [facility] (BACTROBAN) 3-12 topically Col lege 2 % 00:00: as of ointment 00 directed Medicin twice e daily mupirocin 2020-0 Yes Apply [facility] (BACTROBAN) 3-12 topically Col lege 2 % 00:00: as of ointment 00 directed Medicin twice e daily mupirocin Yes Apply [facility] (BACTROBAN) 3-12 topically Col lege 2 % 00:00: as of ointment 00 directed Medicin twice e daily mupirocin Yes Apply [facility] (BACTROBAN) 3-12 topically Col lege 2 % 00:00: as of ointment 00 directed Medicin twice e daily mupirocin 2020- No Apply [facility] (BACTROBAN) 08-31 topically Co llege 2 % 00:00: 00:00 as of ointment 00 :00 directed Medicin twice e daily mupirocin 2020- No Apply [facility] (BACTROBAN) 08-31 topically Co llege 2 % 00:00: 00:00 as of ointment 00 :00 directed Medicin twice e daily SitaGLIPtin Yes Take 1 [facility] -MetFORMIN 9-20 tablet(s) Lizy ege HCl 14:42: every day of (JANUMET 15 by oral Medicin XR) 50-1000 route for e MG TB24 30 days. PRN SitaGLIPtin Yes Take 1 [facility] -MetFORMIN 9-20 tablet(s) Lizy ege HCl 14:42: every day of (JANUMET 15 by oral Medicin XR) 50-1000 route for e MG TB24 30 days. PRN SitaGLIPtin Yes Take 1 [facility] -MetFORMIN 9-20 tablet(s) Lizy ege HCl 14:42: every day of (JANUMET 15 by oral Medicin XR) 50-1000 route for e MG TB24 30 days. PRN SitaGLIPtin 0 Yes Take 1 [facility] -MetFORMIN 9-20 tablet(s) Liz[facility] e[facility] HCl 14:42: every day of (JANUMET 15 by oral Medicin XR) 50-1000 route for e MG TB24 30 days. PRN SitaGLIPtin 0 Yes Take 1 [facility] -MetFORMIN 9-20 tablet(s) Lizy ege HCl 14:42: every day of (JANUMET 15 by oral Medicin XR) 50-1000 route for e MG TB24 30 days. PRN SitaGLIPtin 2019-0 Yes Take 1 [facility] -MetFORMIN 9-20 tablet(s) Lizy ege HCl 14:42: every day of (JANUMET 15 by oral Medicin XR) 50-1000 route for e MG TB24 30 days. PRN SitaGLIPtin 2019-0 Yes Take 1 [facility] -MetFORMIN 9-20 tablet(s) Lizy ege HCl 14:42: every day of (JANUMET 15 by oral Medicin XR) 50-1000 route for e MG TB24 30 days. PRN SitaGLIPtin 2019-0 Yes Take 1 [facility] -MetFORMIN 9-20 tablet(s) Lizy ege HCl 14:42: every day of (JANUMET 15 by oral Medicin XR) 50-1000 route for e MG TB24 30 days. PRN potassium 2019-0 Yes 20meq Take 20 [facility] chloride SA 9-19 mEq by Colleg e (K-DUR, 00:00: mouth. of KLOR-CON 00 Medicin M20) 20 MEQ e tablet potassium 0 Yes 20meq Take 20 [facility] chloride SA 9-19 mEq by Colleg e (K-DUR, 00:00: mouth. of KLOR-CON 00 Medicin M20) 20 MEQ e tablet potassium 2018-0 Yes 20meq Take 20 [facility] chloride SA 9-19 mEq by Colleg e (K-DUR, 00:00: mouth. of KLOR-CON 00 Medicin M20) 20 MEQ e tablet potassium 2018-0 Yes 20meq Take 20 [facility] chloride SA 9-19 mEq by Colleg e (K-DUR, 00:00: mouth. of KLOR-CON Medicin M20) 20 MEQ e tablet potassium 2019-0 Yes 20meq Take 20 [facility] chloride SA 9-19 mEq by Colleg e (K-DUR, 00:00: mouth. of KLOR-CON 00 Medicin M20) 20 MEQ e tablet potassium 2019-0 Yes 20meq Take 20 [facility] chloride SA 9-19 mEq by Colleg e (K-DUR, 00:00: mouth. of KLOR-CON 00 Medicin M20) 20 MEQ e tablet potassium 2019-0 Yes 20meq Take 20 [facility] chloride SA 9-19 mEq by Colleg e (K-DUR, 00:00: mouth. of KLOR-CON Medicin M20) 20 MEQ e tablet potassium Yes 20meq Take 20 [facility] chloride SA 9-19 mEq by [facility] e (K-DUR, 00:00: mouth. of KLOR-CON 00 Medicin M20) 20 MEQ e tablet potassium 2020- No [id number] 20meq Take 1 [facility] chloride 9- 05-14 tablet (20 st (K-DUR) 20 00:00: 00:00 mEq total) Hospita MEQ CR 00 :00 by mouth l tablet as needed (Edema). furosemide 2020- No [id number] 20mg Take 1 [facility] (LASIX) 20 9- 05-14 tablet (20 st mg tablet 00:00: 00:00 mg total) Ho spita 00 :00 by mouth l as needed ([place]ema). potassium 2020- No 20meq Take 20 [place] [facility] chloride SA 9-19 04-29 mEq by Colle ge (K-DUR, 00:00: 00:00 mouth. of KLOR-CON 00 :00 Medicin M20) 20 MEQ e tablet mupirocin 2018- No Apply [facility] (BACTROBAN) 5-11 09-20 topically Co llege 2 % 00:00: 00:00 as of ointment 00 :00 directed Medicin to e affected area twice daily. rosuvastati Yes 20mg QD Take 20 mg [facility] (CRESTOR) 9-[address] 20 MG 00:00: daily. Hospita tablet l valsartan 2015-06 Yes 80mg QD Take 80 mg [facility] (DIOVAN) 80 2-[address] MG tablet 00:00: daily. Hospit a 00 l metoprolol 2015-06 Yes 50mg 50 mg two [facility] (LOPRESSOR) 2-23 times College 50 MG 00:00: daily. of tablet 00 Medicin e valsartan 2015-06 Yes [facility] [place] (DIOVAN) 80 2-23 [facility] MG tablet 00:00: of 00 Medicin e valsartan 2015-06 Yes [facility] [place] (DIOVAN) 80 2-23 [facility] MG tablet 00:00: of 00 Medicin e metoprolol 2015-06 Yes 50mg 50 mg two [facility] (LOP[facility] times [facility] 50 MG 00:00: daily. of tablet 00 Medicin e valsartan 2015-06 Yes [facility] (DIOVAN) 80 2-23 [facility] MG tablet 00:00: of 00 Medicin e metoprolol 2015-06 Yes 100mg 100 mg two [facility] [place] (LOPRESSOR) 2-23 times [facility] 50 MG 00:00: daily. of tablet 00 Medicin e valsartan 2015-06 Yes [facility] (DIOVAN) 80 2-23 [facility] MG tablet 00:00: of 00 Medicin e metoprolol 2015-06 Yes 100mg 100 mg two [facility] (LOPRESSOR) 2-23 times [facility] 50 MG 00:00: daily. of tablet 00 Medicin e valsartan 2015-06 Yes [facility] (DIOVAN) 80 2-23 [facility] MG tablet 00:00: of 00 Medicin e metoprolol 2015-06 Yes 100mg 100 mg two [facility] (LOPRESSOR) 2-23 times [facility] 50 MG 00:00: daily. of tablet Medicin e valsartan 2015-06 Yes [facility] (DIOVAN) 80 2-23 [facility] MG tablet 00:00: of 00 Medicin e valsartan 2015-06 Yes [facility] (DIOVAN) 80 2-23 [facility] MG tablet 00:00: of 00 Medicin e valsartan 2015-06 Yes [facility] (DIOVAN) 80 2-23 [facility] MG tablet 00:00: of 00 Medicin e valsartan 2015-06 Yes [facility] (DIOVAN) 80 2-23 [facility] MG tablet 00:00: of 00 Medicin e valsartan 2015-06 Yes [facility] (DIOVAN) 80 2-23 [facility] MG tablet 00:00: of 00 Medicin e valsartan 2015-06 Yes [facility] (DIOVAN) 80 2-23 [facility] MG tablet 00:00: of 00 Medicin e valsartan 2015-06 Yes [facility] (DIOVAN) 80 2-23 [facility] MG tablet 00:00: of 00 Medicin e valsartan 2015-06 Yes [facility] (DIOVAN) 80 2-23 [facility] MG tablet 00:00: of 00 Medicin e valsartan 2015-06 Yes [facility] (DIOVAN) 80 2-23 [facility] MG tablet 00:00: of 00 Medicin e valsartan 2015-06 Yes [facility] (DIOVAN) 80 2-23 [facility] MG tablet 00:00: of 00 Medicin e valsartan 2015- Yes [facility] (DIOVAN) 80 2-23 [facility] MG tablet 00:00: of 00 Medicin e valsartan 2015-06 Yes [facility] (DIOVAN) 80 2-23 [facility] MG tablet 00:00: of 00 Medicin e metoprolol 2015-06 2020- No 100mg 100 mg two [facility] (LOPRESSOR) 2-23 10-23 times [facility] e 50 MG 00:00: 00:00 daily. of tablet 00 :00 Medicin e ELIQUIS 5 2015-06 Yes [facility] MG TABS 2-09 College 00:00: of 00 Medicin e ELIQUIS 5 2015-06 Yes [facility] MG TABS 2-09 College 00:00: of 00 Medicin e ELIQUIS 5 2015-06 Yes [facility] MG TABS 2-09 [facility] 00:00: of 00 Medicin e ELIQUIS 5 2015-06 Yes [facility] MG TABS 2-09 [facility] 00:00: of 00 Medicin e ELIQUIS 5 2015-06 Yes [facility] MG TABS 2-09 [facility] 00:00: of 00 Medicin e ELIQUIS 5 2015-06 Yes [facility] MG TABS 2-09 [facility] 00:00: of 00 Medicin e ELIQUIS 5 2015-06 Yes [facility] MG TABS 2-09 College 00:00: of 00 Medicin e ELIQUIS 5 2015-06 Yes [facility] MG TABS 2-09 [facility] 00:00: of 00 Medicin e ELIQUIS 5 2015-06 Yes [facility] MG TABS 2-09 [facility] 00:00: of 00 Medicin e ELIQUIS 5 2015-06 Yes [facility] MG TABS 2-09 [facility] 00:00: of 00 Medicin e ELIQUIS 5 2015-06 Yes [facility] MG TABS 2-09 [facility] 00:00: of 00 Medicin e ELIQUIS 5 2015-06 Yes [facility] MG TABS 2-09 [facility] 00:00: of 00 Medicin e ELIQUIS 5 2015-06 Yes [facility] MG TABS 2-09 [facility] 00:00: of 00 Medicin e ELIQUIS 5 2015-06 Yes [facility] MG TABS 2-09 [facility] 00:00: of 00 Medicin e ELIQUIS 5 2015-06 Yes [facility] MG TABS 2-09 [facility] 00:00: of 00 Medicin e ELIQUIS 5 2015-06 Yes [facility] MG TABS 2-09 [facility] 00:00: of 00 Medicin e ELIQUIS 5 2015-06 Yes [facility] MG TABS 2-09 College 00:00: of 00 Medicin e rosuvastati 2016 Yes 20mg 20 mg. [facility] (CRESTOR) 1-23 [facility] 5 MG tablet 00:00: of 00 Medicin e CIALIS 20 2015-06 Yes [facility] MG tablet 1-23 College 00:00: of 00 Medicin e rosuvastati 2015-06 Yes 20mg 20 mg. [facility] (CRESTOR) 1-23 [facility] 5 MG tablet 00:00: of 00 Medicin e rosuvastati 2015-06 Yes 20mg 20 mg. [facility] (CRESTOR) 1-23 [facility] 5 MG tablet 00:00: of 00 Medicin e CIALIS 20 2015-06 Yes [facility] MG tablet 1- College 00:00: of 00 Medicin e rosuvastati 2015-06 Yes 20mg 20 mg. [facility] (CRESTOR) 1-23 [facility] 5 MG tablet 00:00: of 00 Medicin e rosuvastati 2016- Yes 20mg 20 mg. [facility] (CRESTOR) 1-23 [facility] 5 MG tablet 00:00: of 00 Medicin e rosuvastati 2016- Yes 20mg 20 mg. [facility] (CRESTOR) 1-23 [facility] 5 MG tablet 00:00: of 00 Medicin e rosuvastati 2016- Yes 20mg 20 mg. [facility] (CRESTOR) 1-23 [facility] 5 MG tablet 00:00: of 00 Medicin e rosuvastati 2016- Yes 20mg 20 mg. [facility] (CRESTOR) 1-23 [facility] 5 MG tablet 00:00: of 00 Medicin e rosuvastati 2016- Yes 20mg 20 mg. [facility] (CRESTOR) 1-23 [facility] 5 MG tablet 00:00: of 00 Medicin e rosuvastati 2016- Yes 20mg 20 mg. [facility] (CRESTOR) 1-23 [facility] 5 MG tablet 00:00: of 00 Medicin e rosuvastati 2016- Yes 20mg 20 mg. [facility] (CRESTOR) 1-23 [facility] 5 MG tablet 00:00: of 00 Medicin e rosuvastati 2015-06 Yes 20mg 20 mg. [facility] (CRESTOR) 23 [facility] 5 MG tablet 00:00: of 00 Medicin e rosuvastati 2015-06 Yes 20mg 20 mg. [facility] (CRESTOR) 23 [facility] 5 MG tablet 00:00: of 00 Medicin e rosuvastati 2015-06 Yes 20mg 20 mg. [facility] (CRESTOR) 23 [facility] 5 MG tablet 00:00: of 00 Medicin e rosuvastati 2015-06 Yes 20mg 20 mg. [facility] (CRESTOR) 23 [facility] 5 MG tablet 00:00: of 00 Medicin e rosuvastati 2015-06 Yes 20mg 20 mg. [facility] (CRESTOR) 23 [facility] 5 MG tablet 00:00: of 00 Medicin e rosuvastati 2015-06 Yes 20mg 20 mg. [facility] (CRESTOR) 23 [facility] 5 MG tablet 00:00: of 00 Medicin e CIALIS 20 2015-06 2020- No [facility] MG tablet 07-14-12 College 00:00: 00:00 of 00 :00 Medicin e Immunizations Ordered Immunization Filled Immunization Date Status Commen ts Source Name Name Hib (PRP-T) 2015-12-27 Completed [facility] 00:[facility]00 [facility] Pneumococcal 2015-12-26 Completed [facility] Polysaccharide 00:00:00 Hospital Vital Signs Vital Name Observation Time Observation Value Comments Source Systolic blood 2021-08-15 21:36:00 155 mm[Hg] [facility] Medicine Diastolic blood 2021-08-15 21:36:00 92 mm[Hg] [facility] Medicine Heart rate 2021-08-15 21:36:00 76 /min [facility] Respiratory rate 2021-08-15 21:36:00 16 /min [facility] Body height 2021-08-15 21:36:00 172.7 cm [facility] Body weight 2021-08-15 21:36:00 110.224 kg [facility] BMI 2021-08-15 21:36:00 36.95 kg/m2 [facility] Systolic blood 2021-05-09 14:24:00 131 mm[Hg] [facility] pressure Medicine Diastolic blood 2021-05-09 14:24:00 83 mm[Hg] [facility] of pressure Medicine Heart rate 2021-05-09 14:24:00 73 /min [facility] Body height 2021-05-09 14:24:00 172.7 cm [facility] Body weight 2021-05-09 14:24:00 110.224 kg [facility] BMI 2021-05-09 14:24:00 36.95 kg/m2 [facility] Systolic blood 2021-03-14 14:47:00 133 mm[Hg] [facility] of pressure Medicine Diastolic blood 2021-03-14 14:47:00 85 mm[Hg] [facility] Medicine Heart rate 2021-03-14 14:47:00 60 /min [facility] Body height 2021-03-14 14:47:00 172.7 cm [facility] Body weight 2021-03-14 14:47:00 110.224 kg [facility] BMI 2021-03-14 14:47:00 36.95 kg/m2 [facility] Systolic blood 2021-02-21 15:29:00 132 mm[Hg] [facility] pressure Medicine Diastolic blood 2021-02-21 15:29:00 85 mm[Hg] [facility] Medicine Heart rate 2021-02-21 15:29:00 71 /min [facility] Body height 2021-02-21 15:29:00 172.7 cm [facility] Body weight 2021-02-21 15:29:00 110.224 kg [facility] BMI 2021-02-21 15:29:00 36.95 kg/m2 [facility] Systolic blood 2021-02-15 14:31:00 121 mm[Hg] [facility] of pressure Medicine Diastolic blood 2021-02-15 14:31:00 79 mm[Hg] [facility] pressure Medicine Heart rate 2021-02-15 14:31:00 76 /min [facility] Body temperature 2021-02-15 14:31:00 36.33 Maddie [facility] Body height 2021-02-15 14:31:00 172.7 cm [facility] Body weight 2021-02-15 14:31:00 110.224 kg [facility] BMI 2021-02-15 14:31:00 36.95 kg/m2 [facility] Systolic blood 2020-10-18 14:46:00 135 mm[Hg] [facility] of pressure Medicine Diastolic blood 2020-10-18 14:46:00 66 mm[Hg] [facility] of pressure Medicine Heart rate 2020-10-18 14:46:00 73 /min [facility] ollege of Medicine Body temperature 2020-10-18 14:46:00 36.89 Maddie [facility] Body height 2020-10-18 14:46:00 172.7 cm [facility] Body weight 2020-10-18 14:46:00 110.224 kg [facility] ol[facility] of Medicine BMI 2020-10-18 14:46:00 36.95 kg/m2 [facility] Systolic blood 2020-10-18 14:46:00 135 mm[Hg] [facility] of pressure Medicine Diastolic blood 2020-10-18 14:46:00 66 mm[Hg] [facility] pressure Medicine Heart rate 2020-10-18 14:46:00 73 /min [facility] Body temperature 2020-10-18 14:46:00 36.89 Maddie [facility] Body height 2020-10-18 14:46:00 172.7 cm [facility] Body weight 2020-10-18 14:46:00 110.224 kg [facility] BMI 2020-10-18 14:46:00 36.95 kg/m2 [facility] Body height 2020-09-28 15:13:00 172.7 cm [facility] Body weight 2020-09-28 15:13:00 110.224 kg [facility] BMI 2020-09-28 15:13:00 36.95 kg/m2 [facility] Body height 2020-09-28 15:13:00 172.7 cm [facility] Body weight 2020-09-28 15:13:00 110.224 kg [facility] BMI 2020-09-28 15:13:00 36.95 kg/m2 [facility] Systolic blood 2020-04-13 13:34:00 150 mm[Hg] [facility] of pressure Medicine Diastolic blood 2020-04-13 13:34:00 83 mm[Hg] [facility] of pressure Medicine Heart rate 2020-04-13 13:34:00 72 /min [facility] Body height 2020-04-13 13:34:00 172.7 cm [facility] Body weight 2020-04-13 13:34:00 113.399 kg [facility] BMI 2020-04-13 13:34:00 38.01 kg/m2 [facility] Systolic blood 2020-04-13 13:34:00 150 mm[Hg] [facility] of pressure Medicine Diastolic blood 2020-04-13 13:34:00 83 mm[Hg] [facility] of pressure Medicine Heart rate 2020-04-13 13:34:00 72 /min [facility] Body height 2020-04-13 13:34:00 172.7 cm [facility] Body weight 2020-04-13 13:34:00 113.399 kg [facility] BMI 2020-04-13 13:34:00 38.01 kg/m2 [facility] Systolic blood 2019-12-09 13:42:00 146 mm[Hg] [facility] of pressure Medicine Diastolic blood 2019-12-09 13:42:00 79 mm[Hg] [facility] of pressure Medicine Heart rate 2019-12-09 13:42:00 64 /min [facility] Body height 2019-12-09 13:42:00 172.7 cm [facility] Body weight 2019-12-09 13:42:00 113.399 kg [facility] BMI 2019-12-09 13:42:00 38.01 kg/m2 [facility] Systolic blood 2019-12-09 13:42:00 146 mm[Hg] [facility] pressure Medicine Diastolic blood 2019-12-09 13:42:00 79 mm[Hg] [facility] pressure Medicine Heart rate 2019-12-09 13:42:00 64 /min [facility] Body height 2019-12-09 13:42:00 172.7 cm [facility] Body weight 2019-12-09 13:42:00 113.399 kg [facility] BMI 2019-12-09 13:42:00 38.01 kg/m2 [facility] Systolic blood 2019-11-18 13:46:00 117 mm[Hg] [facility] of pressure Medicine Diastolic blood 2019-11-18 13:46:00 69 mm[Hg] [facility] Medicine Heart rate 2019-11-18 13:46:00 65 /min [facility] Body height 2019-11-18 13:46:00 172.7 cm [facility] Body weight 2019-11-18 13:46:00 113.399 kg [facility] BMI 2019-11-18 13:46:00 38.01 kg/m2 [facility] Systolic blood 2019-11-18 13:46:00 117 mm[Hg] [facility] of pressure Medicine Diastolic blood 2019-11-18 13:46:00 69 mm[Hg] [facility] Medicine Heart rate 2019-11-18 13:46:00 65 /min [facility] Body height 2019-11-18 13:46:00 172.7 cm [facility] Body weight 2019-11-18 13:46:00 113.399 kg [facility] BMI 2019-11-18 13:46:00 38.01 kg/m2 [facility] Systolic blood 2019-09-01 15:43:00 109 mm[Hg] [facility] of pressure Medicine Diastolic blood 2019-09-01 15:43:00 66 mm[Hg] [facility] of pressure Medicine Heart rate 2019-09-01 15:43:00 87 /min [facility] Body height 2019-09-01 15:43:00 172.7 cm [facility] Body weight 2019-09-01 15:43:00 112.946 kg [facility] BMI 2019-09-01 15:43:00 37.86 kg/m2 [facility] Systolic blood 2019-09-01 15:43:00 109 mm[Hg] [facility] of pressure Medicine Diastolic blood 2019-09-01 15:43:00 66 mm[Hg] [facility] of pressure Medicine Heart rate 2019-09-01 15:43:00 87 /min [facility] Body height 2019-09-01 15:43:00 172.7 cm [facility] Body weight 2019-09-01 15:43:00 112.946 kg [facility] BMI 2019-09-01 15:43:00 37.86 kg/m2 [facility] Systolic blood 2019-04-12 14:49:00 128 mm[Hg] [facility] of pressure Medicine Diastolic blood 2019-04-12 14:49:00 80 mm[Hg] [facility] of pressure Medicine Heart rate 2019-04-12 14:49:00 68 /min [facility] Body height 2019-04-12 14:49:00 172.7 cm [facility] Body weight 2019-04-12 14:49:00 112.946 kg [facility] BMI 2019-04-12 14:49:00 37.86 kg/m2 [facility] Systolic blood 2019-04-12 14:49:00 128 mm[Hg] [facility] of pressure Medicine Diastolic blood 2019-04-12 14:49:00 80 mm[Hg] [facility] of pressure Medicine Heart rate 2019-04-12 14:49:00 68 /min [facility] Body height 2019-04-12 14:49:00 172.7 cm [facility] Body weight 2019-04-12 14:49:00 112.946 kg [facility] BMI 2019-04-12 14:49:00 37.86 kg/m2 [facility] Systolic blood 2019-03-11 14:39:00 111 mm[Hg] [facility] pressure Medicine Diastolic blood 2019-03-11 14:39:00 70 mm[Hg] [facility] of pressure Medicine Heart rate 2019-03-11 14:39:00 69 /min [facility] Body height 2019-03-11 14:39:00 172.7 cm [facility] Body weight 2019-03-11 14:39:00 112.946 kg [facility] BMI 2019-03-11 14:39:00 37.86 kg/m2 [facility] ollege of Medicine Systolic blood 2019-03-11 14:39:00 111 mm[Hg] [facility] of pressure Medicine Diastolic blood 2019-03-11 14:39:00 70 mm[Hg] [facility] of pressure Medicine Heart rate 2019-03-11 14:39:00 69 /min [facility] Body height 2019-03-11 14:39:00 172.7 cm [facility] ol[facility] of Medicine Body weight 2019-03-11 14:39:00 112.946 kg [facility] ollege of Medicine [facility] 2019-03-11 14:39:00 37.86 kg/m2 [facility] ollege of Medicine Heart rate 2020-11-02 13:54:00 64 /min [facility] Body height 2020-11-02 13:54:00 172.7 cm [facility] Body weight 2020-11-02 13:54:00 110.224 kg [facility] BMI 2020-11-02 13:54:00 36.95 kg/m2 [facility] Systolic blood 2020-11-02 13:54:00 162 mm[Hg] [facility] 2020-11-02 13:54:00 88 mm[facility]Hg[facility] pressure Body temperature 2020-03-21 16:07:00 36.28 [facility] Diastolic (mm Hg) 2016-09-29 15:17:00 Mem [facility] [place] Systolic (mm Hg) 2016-09-29 15:17:00 Maxi rial [place] Systolic (mm Hg) 2016-09-22 16:38:00 [facility] [place] Diastolic (mm Hg) 2016-09-22 16:38:00 [facility] Systolic (mm Hg) 2016-09-15 17:47:00 [facility] [place] Diastolic (mm Hg) 2016-09-15 17:47:00 [facility] [place] Systolic (mm Hg) 2016-08-25 18:57:00 [facility] [place] Diastolic (mm Hg) 2016-08-25 18:57:00 [facility] [place] Systolic (mm Hg) 2016-08-18 21:38:00 Maxi rial [place] Diastolic (mm Hg) 2016-08-18 21:38:00 Mem o[facility] [place] Systolic (mm Hg) 2016-08-15 15:55:00 [facility] Diastolic (mm Hg) 2016-08-15 15:55:00 [facility] [place] Heart Rate 2016-08-15 15:55:00 [facility] Systolic (mm Hg) 2016-07-28 18:43:00 [facility] [place] Diastolic (mm Hg) 2016-07-28 18:43:00 [facility] [place] Heart Rate 2016-07-25 18:54:00 [facility] [place] Systolic (mm Hg) 2016-07-25 18:54:00 Maxi rial [place] Diastolic (mm Hg) 2016-07-25 18:54:00 [facility] Systolic (mm Hg) 2016-07-21 16:14:00 Maxi rial [place] Diastolic (mm Hg) 2016-07-21 16:14:00 [facility] Heart Rate 2016-07-11 21:28:00 [facility] [place] Heart Rate 2016-06-30 14:59:00 [facility] Procedures Procedure Date / Time Performing Clinician Source Performed NASAL ENDOSCOPY, 2021-08-15 00:00:00 [facility] OR BILATERAL (SEPARATE PROCED) NASAL ENDOSCOPY, 2021-02-15 00:00:00 Erendira Davis [facility] [place] [facility] of DIAGNOSTIC, UNILATERAL Medicine OR BILATERAL (SEPARATE PROCED) ECG 12-LEAD 2020-11-02 12:58:32 [facility] NASAL ENDOSCOPY, 2020-10-18 00:00:00 Erendira Davis [facility] [place] [facility] of DIAGNOSTIC, UNILATERAL Medicine OR BILATERAL (SEPARATE PROCED) US CAROTID DUPLEX 2020-03-21 18:00:00 [facility], [facility] BILATERAL PV TRANSCRANIAL DOPPLER 2020-03-21 18:00:00 [facility], [facility] INTRACRANIAL ARTERIES COMPLETE [place] NASAL ENDOSCOPY,DX 2019-11-18 00:00:00 Erendira Davis [facility] NASAL ENDOSCOPY, 2019-09-01 00:00:00 Erendira Davis [facility] of DIAGNOSTIC, UNILATERAL Medicine OR BILATERAL (SEPARATE PROCED) Plan of Care Planned Activity Planned Date Details Comments Source Future Scheduled 2021-08-25 Screening for malignant [facility] Test 20:21:52 neoplasm of colon of Medicin e (procedure) [code = 158757372] Future Scheduled 2021-08-25 COVID-19 Vaccine (1) [employer] [facility] [employer] Test 20:21:52 [code = COVID-19 of Medicine Vaccine (1)] Future Scheduled 2021-08-25 TETANUS SHOT (ADULT) [employer] [facility] [employer] Test 20:21:52 [code = TETANUS SHOT of Medi cine (ADULT)] Future Scheduled 2021-08-25 BMI FOLLOW UP PLAN [employer] [employer] Test 20:21:52 [code = BMI FOLLOW UP of Med icine PLAN] Future Scheduled 2021-08-25 Hepatitis C screening [employer] Test 20:21:52 (procedure) [code = of Medic ine 610026822] Future Scheduled 2021-08-25 ZOSTER VACCINE (1 of 2) [facility] Test 20:21:52 [code = ZOSTER VACCINE of Me dicine (1 of 2)] Future Scheduled 2021-08-25 MEDICARE AWV (Initial) [employer] Test 20:21:52 [code = MEDICARE AWV of Medi cine (Initial)] Future Scheduled 2021-08-25 FALL SCREEN [code = [facility] [employer] Test 20:21:52 FALL SCREEN] of Medicine Future Scheduled 2021-08-25 Pneumococcal 65+ (1 of [employer] Test 20:21:52 1 - PPSV23) [code = of Medic ine Pneumococcal 65+ (1 of 1 - PPSV23)] Future Scheduled 2021-08-25 FLU VACCINE > 6 MONTHS [facility] Test 20:21:52 [code = FLU VACCINE > 6 of M edicine MONTHS] Future Scheduled 2021-05-17 [place] CTRL Ordered: [facility] Test 19:08:58 NOSEBLEED,ANTER,SIMPLE 05/17/2021 of Me dicine [code = 60909] Future Scheduled 2021-05-17 Screening for malignant [facility] Test 19:07:28 neoplasm of colon of Medicin e (procedure) [code = 331842777] Future Scheduled 2021-05-17 COVID-19 Vaccine (1) [facility] Test 19:07:28 [code = COVID-19 of Medicine Vaccine (1)] Future Scheduled 2021-05-17 TETANUS SHOT (ADULT) [facility] Test 19:07:28 [code = TETANUS SHOT of Medi cine (ADULT)] Future Scheduled 2021-05-17 BMI FOLLOW UP PLAN [facility] Test 19:07:28 [code = BMI FOLLOW UP of Med icine PLAN] Future Scheduled 2021-05-17 Hepatitis C screening [facility] Test 19:07:28 (procedure) [code = of Medic ine 891997455] Future Scheduled 2021-05-17 ZOSTER VACCINE (1 of 2) [facility] Test 19:07:28 [code = ZOSTER VACCINE of Me dicine (1 of 2)] Future Scheduled 2021-05-17 MEDICARE AWV (Initial) [facility] Test 19:07:28 [code = MEDICARE AWV of Medi cine (Initial)] Future Scheduled 2021-05-17 FALL SCREEN [code = [facility] [employer] Test 19:07:28 FALL SCREEN] of Medicine Future Scheduled 2021-05-17 Pneumococcal 65+ (1 of [facility] Test 19:07:28 1 - PPSV23) [code = of Medic ine Pneumococcal 65+ (1 of 1 - PPSV23)] Future Scheduled 2021-05-17 FLU VACCINE > 6 MONTHS [facility] Test 19:07:28 [code = FLU VACCINE > 6 of M edicine MONTHS] Future Scheduled 2021-05-09 NASAL ENDOSCOPY, Ordered: [facility] Test 09:28:44 DIAGNOSTIC, UNILATERAL 05/09/2021 of Me dicine OR BILATERAL (SEPARATE PROCED) [code = 25482] Future Scheduled 2021-03-24 NASAL ENDOSCOPY, Ordered: [facility] Test 16:55:10 DIAGNOSTIC, UNILATERAL 03/24/2021 of Me dicine OR BILATERAL (SEPARATE PROCED) [code = 11001] Future Scheduled 2021-03-24 NASAL ENDOSCOPY, Ordered: [facility] Test 16:55:10 DIAGNOSTIC, UNILATERAL 03/24/2021 of Me dicine OR BILATERAL (SEPARATE PROCED) [code = 14296] Future Scheduled 2021-03-24 Screening for malignant [facility] Test 16:53:01 neoplasm of colon of Medicin e (procedure) [code = 217476647] Future Scheduled 2021-03-24 COVID-19 Vaccine (1) [facility] Test 16:53:01 [code = COVID-19 of Medicine Vaccine (1)] Future Scheduled 2021-03-24 TETANUS SHOT (ADULT) [facility] Test 16:53:01 [code = TETANUS SHOT of Medi cine (ADULT)] Future Scheduled 2021-03-24 BMI FOLLOW UP PLAN [facility] Test 16:53:01 [code = BMI FOLLOW UP of Med icine PLAN] Future Scheduled 2021-03-24 Hepatitis C screening [facility] Test 16:53:01 (procedure) [code = of Medic ine [id number]] Future Scheduled 2021-03-24 ZOSTER VACCINE (1 of 2) [facility] Test 16:53:01 [code = ZOSTER VACCINE of Me dicine (1 of 2)] Future Scheduled 2021-03-24 MEDICARE AWV (Initial) [facility] Test 16:53:01 [code = MEDICARE AWV of Medi cine (Initial)] Future Scheduled 2021-03-24 FALL SCREEN [code = [employer] Test 16:53:01 FALL SCREEN] of Medicine Future Scheduled 2021-03-24 PNEUMOVAX >=65 (PPSV23) [facility] Test 16:53:01 [code = PNEUMOVAX >=65 of Me dicine (PPSV23)] Future Scheduled 2021-03-24 [facility] 16:53:01 [code = FLU VACCINE > 6 of M edicine MONTHS] Future Scheduled 2021-03-24 Screening for malignant [facility] Test 16:53:01 neoplasm of colon of Medicin e (procedure) [code = [id number]] Future Scheduled 2021-03-24 COVID-19 Vaccine (1) [employer] [facility] Test 16:53:01 [code = COVID-19 of Medicine Vaccine (1)] Future Scheduled 2021-03-24 TETANUS SHOT (ADULT) [employer] [facility] 16:53:01 [code = TETANUS SHOT of Medi cine (ADULT)] Future Scheduled 2021-03-24 BMI FOLLOW UP PLAN [employer] [facility] 16:53:01 [code = BMI FOLLOW UP of Med icine PLAN] Future Scheduled 2021-03-24 Hepatitis C screening [facility] [employer] [facility] 16:53:01 (procedure) [code = of Medic ine [id number]] Future Scheduled 2021-03-24 ZOSTER VACCINE (1 of 2) [facility] [employer] Test 16:53:01 [code = ZOSTER VACCINE of Me dicine (1 of 2)] Future Scheduled 2021-03-24 [facility] 16:53:01 [code = MEDICARE AWV of Medi cine (Initial)] Future Scheduled 2021-03-24 FALL SCREEN [code = [facility] Test 16:53:01 FALL SCREEN] of Medicine Future Scheduled 2021-03-24 PNEUMOVAX >=65 (PPSV23) [facility] Test 16:53:01 [code = PNEUMOVAX >=65 of Me dicine (PPSV23)] Future Scheduled 2021-03-24 FLU VACCINE > 6 MONTHS [facility] 16:53:01 [code = FLU VACCINE > 6 of M edicine MONTHS] Future Scheduled 2021-03-03 Screening for malignant [facility] Test 15:44:40 neoplasm of colon of Medicin e (procedure) [code = 917550250] Future Scheduled 2021-03-03 COVID-19 Vaccine (1) [employer] [facility] 15:44:40 [code = COVID-19 of Medicine Vaccine (1)] Future Scheduled 2021-03-03 TETANUS SHOT (ADULT) [employer] [facility] 15:44:40 [code = TETANUS SHOT of Medi cine (ADULT)] Future Scheduled 2021-03-03 BMI FOLLOW UP PLAN [employer] [facility] 15:44:40 [code = BMI FOLLOW UP of Med icine PLAN] Future Scheduled 2021-03-03 Hepatitis C screening [employer] [facility] 15:44:40 (procedure) [code = of Medic ine [id number]] Future Scheduled 2021-03-03 ZOSTER VACCINE (1 of 2) [facility] [employer] Test 15:44:40 [code = ZOSTER VACCINE of Me dicine (1 of 2)] Future Scheduled 2021-03-03 MEDICARE AWV (Initial) [employer] [facility] 15:44:40 [code = MEDICARE AWV of Medi cine (Initial)] Future Scheduled 2021-03-03 FALL SCREEN [code = [employer] [facility] 15:44:40 FALL SCREEN] of Medicine Future Scheduled 2021-03-03 PNEUMOVAX >=65 (PPSV23) [facility] [employer] [facility] 15:44:40 [code = PNEUMOVAX >=65 of Me dicine (PPSV23)] Future Scheduled 2021-03-03 FLU VACCINE > 6 MONTHS [employer] [facility] 15:44:40 [code = FLU VACCINE > 6 of M edicine MONTHS] Future Scheduled 2021-03-03 Screening for malignant [facility] [employer] Test 15:44:40 neoplasm of colon of Medicin e (procedure) [code = 108776404] Future Scheduled 2021-03-03 COVID-19 Vaccine (1) [employer] [facility] 15:44:40 [code = COVID-19 of Medicine Vaccine (1)] Future Scheduled 2021-03-03 TETANUS SHOT (ADULT) [employer] [facility] 15:44:40 [code = TETANUS SHOT of Medi cine (ADULT)] Future Scheduled 2021-03-03 BMI FOLLOW UP PLAN [facility] [employer] Test 15:44:40 [code = BMI FOLLOW UP of Med icine PLAN] Future Scheduled 2021-03-03 Hepatitis C screening [employer] [facility] 15:44:40 (procedure) [code = of Medic ine [id number]] Future Scheduled 2021-03-03 ZOSTER VACCINE (1 of 2) [employer] [facility] 15:44:40 [code = ZOSTER VACCINE of Me dicine (1 of 2)] Future Scheduled 2021-03-03 MEDICARE AWV (Initial) [employer] [facility] 15:44:40 [code = MEDICARE AWV of Medi cine (Initial)] Future Scheduled 2021-03-03 FALL SCREEN [code = [employer] [facility] 15:44:40 FALL SCREEN] of Medicine Future Scheduled 2021-03-03 PNEUMOVAX >=65 (PPSV23) [employer] [facility] 15:44:40 [code = PNEUMOVAX >=65 of Me dicine (PPSV23)] Future Scheduled 2021-03-03 FLU VACCINE > 6 MONTHS [employer] 15:44:40 [code = FLU VACCINE > 6 of M edicine MONTHS] Future Scheduled 2021-02-25 Screening for malignant [employer] [facility] 11:55:00 neoplasm of colon of Medicin e (procedure) [code = 541343505] Future Scheduled 2021-02-25 COVID-19 Vaccine (1) [employer] [facility] 11:55:00 [code = COVID-19 of Medicine Vaccine (1)] Future Scheduled 2021-02-25 TETANUS SHOT (ADULT) [employer] [facility] 11:55:00 [code = TETANUS SHOT of Medi cine (ADULT)] Future Scheduled 2021-02-25 BMI FOLLOW UP PLAN [employer] [facility] 11:55:00 [code = BMI FOLLOW UP of Med icine PLAN] Future Scheduled 2021-02-25 Hepatitis C screening [facility] [employer] [facility] 11:55:00 (procedure) [code = of Medic ine [id number]] Future Scheduled 2021-02-25 ZOSTER VACCINE (1 of 2) [facility] [employer] [facility] 11:55:00 [code = ZOSTER VACCINE of Me dicine (1 of 2)] Future Scheduled 2021-02-25 MEDICARE AWV (Initial) [employer] [facility] 11:55:00 [code = MEDICARE AWV of Medi cine (Initial)] Future Scheduled 2021-02-25 FALL SCREEN [code = [employer] [facility] 11:55:00 FALL SCREEN] of Medicine Future Scheduled 2021-02-25 Screening for malignant [facility] [employer] Test 11:55:00 neoplasm of colon of Medicin e (procedure) [code = 056688846] Future Scheduled 2021-02-25 COVID-19 Vaccine (1) [employer] [facility] 11:55:00 [code = COVID-19 of Medicine Vaccine (1)] Future Scheduled 2021-02-25 TETANUS SHOT (ADULT) [employer] [facility] 11:55:00 [code = TETANUS SHOT of Medi cine (ADULT)] Future Scheduled 2021-02-25 BMI FOLLOW UP PLAN [employer] [facility] 11:55:00 [code = BMI FOLLOW UP of Med icine PLAN] Future Scheduled 2021-02-25 PNEUMOVAX >=65 (PPSV23) [facility] [employer] [facility] 11:55:00 [code = PNEUMOVAX >=65 of Me dicine (PPSV23)] Future Scheduled 2021-02-25 Hepatitis C screening [employer] [facility] 11:55:00 (procedure) [code = of Medic ine 926687057] Future Scheduled 2021-02-25 ZOSTER VACCINE (1 of 2) [facility] [employer] [facility] 11:55:00 [code = ZOSTER VACCINE of Me dicine (1 of 2)] Future Scheduled 2021-02-25 [facility] ([facility] 11:55:00 [code = MEDICARE AWV of Medi cine (Initial)] Future Scheduled 2021-02-25 FALL SCREEN [code = [facility] [employer] [facility] 11:55:00 FALL SCREEN] of Medicine Future Scheduled 2021-02-25 PNEUMOVAX >=65 (PPSV23) [facility] [employer] [facility] 11:55:00 [code = PNEUMOVAX >=65 of Me dicine (PPSV23)] Future Scheduled 2021-02-25 FLU VACCINE > 6 MONTHS [facility] 11:55:00 [code = FLU VACCINE > 6 of M edicine MONTHS] Future Scheduled 2021-02-25 FLU VACCINE > 6 MONTHS [facility] 11:55:00 [code = FLU VACCINE > 6 of M edicine MONTHS] Future Scheduled 2020-10-28 Screening for malignant [facility] [employer] [facility] 10:44:28 neoplasm of colon of Medicin e (procedure) [code = [id number]] Future Scheduled 2020-10-28 TETANUS SHOT (ADULT) [facility] [employer] Test 10:44:28 [code = TETANUS SHOT of Medi cine (ADULT)] Future Scheduled 2020-10-28 COVID-19 Vaccine (1) [employer] 10:44:28 [code = COVID-19 of Medicine Vaccine (1)] Future Scheduled 2020-10-28 BMI FOLLOW UP PLAN [facility] Test 10:44:28 [code = BMI FOLLOW UP of Med icine PLAN] Future Scheduled 2020-10-28 Hepatitis C screening [employer] [facility] 10:44:28 (procedure) [code = of Medic ine [id number]] Future Scheduled 2020-10-28 ZOSTER VACCINE (1 of 2) [facility] [employer] [facility] 10:44:28 [code = ZOSTER VACCINE of Me dicine (1 of 2)] Future Scheduled 2020-10-28 MEDICARE AWV (Initial) [employer] [facility] 10:44:28 [code = MEDICARE AWV of Medi cine (Initial)] Future Scheduled 2020-10-28 FALL SCREEN [code = [facility] [employer] [facility] 10:44:28 FALL SCREEN] of Medicine Future Scheduled 2020-10-28 PNEUMOVAX >=65 (PPSV23) [facility] [employer] [facility] 10:44:28 [code = PNEUMOVAX >=65 of Me dicine (PPSV23)] Future Scheduled 2020-10-28 FLU VACCINE > 6 MONTHS [facility] 10:44:28 [code = FLU VACCINE > 6 of M edicine MONTHS] Future Scheduled COVID-19 VACCINE (1) [facility] [code = COVID-19 Hospital VACCINE (1)] Future Scheduled Hepatitis C screening [facility] (procedure) [code = Hospital [id number]] Future Scheduled COLONOSCOPY SCREENING [facility] [code = COLONOSCOPY Hospital SCREENING] Future Scheduled SHINGLES VACCINES (#1) [facility] [code = SHINGLES Hospital VACCINES (#1)] Future Scheduled 65+ [facility] [facility] Test VACCINE (2 of 2) [code Hospi julieta = 65+ PNEUMOCOCCAL VACCINE (2 of 2)] Future Scheduled INFLUENZA VACCINE [code [employer] [facility] = INFLUENZA VACCINE] Hospita l Future Scheduled NASAL ENDOSCOPY, Ordered: [facility] Test DIAGNOSTIC, UNILATERAL 03/11/2019 of Me dicine OR BILATERAL (SEPARATE PROCED) [code = 39782] Future Scheduled NASAL ENDOSCOPY, Ordered: [facility] [employer] Test DIAGNOSTIC, UNILATERAL 03/21/2019 of Me dicine OR BILATERAL (SEPARATE PROCED) [code = 81467] Future Scheduled TN CTRL Ordered: [facility] Test NOSEBLEED,ANTER,COMPLEX 03/21/2019 of M edicine [code = 83515] Future Scheduled COLON CANCER SCREENING: [facility] Test COLONOSCOPY [code = of Medic ine COLON CANCER SCREENING: COLONOSCOPY] Future Scheduled MEDICARE AWV [code = [employer] MEDICARE AWV] of Medicine Future Scheduled TETANUS SHOT (ADULT) [employer] [facility] [code = TETANUS SHOT of Medi cine (ADULT)] Future Scheduled BMI FOLLOW UP PLAN [employer] [facility] [code = BMI FOLLOW UP of Med icine PLAN] Future Scheduled HEPATITIS C SCREENING [employer] [facility] [code = HEPATITIS C of Medic ine SCREENING] Future Scheduled HIV SCREENING [code = [employer] [facility] HIV SCREENING] of Medicine Future Scheduled FLU VACCINE > 6 MONTHS [employer] [facility] [code = FLU VACCINE > 6 of M edicine MONTHS] Future Scheduled [place] CTRL Ordered: [facility] [employer] Test NOSEBLEED,ANTER,COMPLEX 04/14/2019 of M edicine [code = 86714] Future Scheduled COLON CANCER SCREENING: [facility] [employer] Test COLONOSCOPY [code = of Medic ine COLON CANCER SCREENING: COLONOSCOPY] Future Scheduled MEDICARE AWV [code = [employer] MEDICARE AWV] of Medicine Future Scheduled TETANUS SHOT (ADULT) [employer] [facility] [code = TETANUS SHOT of Medi cine (ADULT)] Future Scheduled BMI FOLLOW UP PLAN [employer] [facility] [code = BMI FOLLOW UP of Med icine PLAN] Future Scheduled HEPATITIS C SCREENING [employer] [facility] [code = HEPATITIS C of Medic ine SCREENING] Future Scheduled HIV SCREENING [code = [employer] [facility] HIV SCREENING] of Medicine Future Scheduled FLU VACCINE > 6 MONTHS [employer] [facility] [code = FLU VACCINE > 6 of M edicine MONTHS] Future Scheduled [place] CTRL Ordered: [facility] [place] [employer] Test NOSEBLEED,ANTER,SIMPLE 09/14/2019 of Pr dicine [code = 50187] Future Scheduled COLON CANCER SCREENING: [facility] [employer] Test COLONOSCOPY [code = of Medic ine COLON CANCER SCREENING: COLONOSCOPY] Future Scheduled TETANUS SHOT (ADULT) [employer] [facility] [code = TETANUS SHOT of Medi cine (ADULT)] Future Scheduled BMI FOLLOW UP PLAN [employer] [facility] [code = BMI FOLLOW UP of Med icine PLAN] Future Scheduled HEPATITIS C SCREENING [employer] [facility] [code = HEPATITIS C of Medic ine SCREENING] Future Scheduled HIV SCREENING [code = [employer] [facility] HIV SCREENING] of Medicine Future Scheduled MEDICARE IPPE (WELCOME [employer] TO MEDICARE) [code = of Medi cine MEDICARE IPPE (WELCOME TO MEDICARE)] Future Scheduled FLU VACCINE > 6 MONTHS [employer] [facility] [code = FLU VACCINE > 6 of M edicine MONTHS] Future Scheduled COLON CANCER SCREENING: [facility] [employer] Test COLONOSCOPY [code = of Medic ine COLON CANCER SCREENING: COLONOSCOPY] Future Scheduled TETANUS SHOT (ADULT) [employer] [facility] [code = TETANUS SHOT of Medi cine (ADULT)] Future Scheduled BMI FOLLOW UP PLAN [employer] [facility] [code = BMI FOLLOW UP of Med icine PLAN] Future Scheduled HEPATITIS C SCREENING [employer] [facility] [code = HEPATITIS C of Medic ine SCREENING] Future Scheduled HIV SCREENING [code = [employer] [facility] HIV SCREENING] of Medicine Future Scheduled MEDICARE AWV (Initial) [employer] [facility] [code = MEDICARE AWV of Medi cine (Initial)] Future Scheduled FLU VACCINE > 6 MONTHS [employer] [facility] [code = FLU VACCINE > 6 of M edicine MONTHS] Future Scheduled COLON CANCER SCREENING: [facility] [employer] Test COLONOSCOPY [code = of Medic ine COLON CANCER SCREENING: COLONOSCOPY] Future Scheduled TETANUS SHOT (ADULT) [employer] [facility] [code = TETANUS SHOT of Medi cine (ADULT)] Future Scheduled BMI FOLLOW UP PLAN [employer] [facility] [code = BMI FOLLOW UP of Med icine PLAN] Future Scheduled HEPATITIS C SCREENING [employer] [facility] [code = HEPATITIS C of Medic ine SCREENING] Future Scheduled HIV SCREENING [code = [employer] HIV SCREENING] of Medicine Future Scheduled MEDICARE AWV (Initial) [employer] [facility] [code = MEDICARE AWV of Medi cine (Initial)] Future Scheduled FLU VACCINE > 6 MONTHS [employer] [facility] [code = FLU VACCINE > 6 of M edicine MONTHS] Future Scheduled [place] CTRL Ordered: [facility] Test NOSEBLEED,ANTER,SIMPLE 04/13/2020 of Me dicine [code = 65509] Future Scheduled COLON CANCER SCREENING: [facility] Test COLONOSCOPY [code = of Medic ine COLON CANCER SCREENING: COLONOSCOPY] Future Scheduled TETANUS SHOT (ADULT) [employer] [facility] [code = TETANUS SHOT of Medi cine (ADULT)] Future Scheduled BMI FOLLOW UP PLAN [employer] [facility] [code = BMI FOLLOW UP of Med icine PLAN] Future Scheduled HEPATITIS C SCREENING [employer] [facility] [code = HEPATITIS C of Medic ine SCREENING] Future Scheduled HIV SCREENING [code = [employer] [facility] HIV SCREENING] of Medicine Future Scheduled ZOSTER VACCINE (1 of 2) [facility] [employer] Test [code = ZOSTER VACCINE of Me dicine (1 of 2)] Future Scheduled MEDICARE AWV (Initial) [employer] [facility] [code = MEDICARE AWV of Medi cine (Initial)] Future Scheduled FLU VACCINE > 6 MONTHS [employer] [facility] [code = FLU VACCINE > 6 of M edicine MONTHS] Future Scheduled NASAL ENDOSCOPY, Ordered: [facility] Test DIAGNOSTIC, UNILATERAL 09/23/2020 of Me dicine OR BILATERAL (SEPARATE PROCED) [code = 92609] Future Scheduled TN CTRL Ordered: [facility] Test NOSEBLEED,ANTER,SIMPLE 09/23/2020 of Me dicine [code = 23960] Future Scheduled Screening for malignant [facility] Test neoplasm of colon of Medicin e (procedure) [code = 019488739] Future Scheduled TETANUS SHOT (ADULT) [employer] [facility] [code = TETANUS SHOT of Medi cine (ADULT)] Future Scheduled COVID-19 Vaccine (1) [employer] [facility] [code = COVID-19 of Medicine Vaccine (1)] Future Scheduled BMI FOLLOW UP PLAN [employer] [facility] [code = BMI FOLLOW UP of Med icine PLAN] Future Scheduled Hepatitis C screening [employer] [facility] (procedure) [code = of Medic ine 321625262] Future [facility]uled [facility] virus screening of Medicine (procedure) [code = 216050178] Future Scheduled ZOSTER VACCINE (1 of 2) [facility] [place] [employer] Test [code = ZOSTER VACCINE of Me dicine (1 of 2)] Future Scheduled MEDICARE AWV (Initial) [employer] [facility] [code = MEDICARE AWV of Medi cine (Initial)] Future Scheduled FLU VACCINE > 6 MONTHS [employer] [facility] [code = FLU VACCINE > 6 of M edicine MONTHS] Future Scheduled Screening for malignant [facility] Test neoplasm of colon of Medicin e (procedure) [code = 080999097] Future Scheduled TETANUS SHOT (ADULT) [employer] [facility] [code = TETANUS SHOT of Medi cine (ADULT)] Future Scheduled COVID-19 Vaccine (1) [employer] [facility] [code = COVID-19 of Medicine Vaccine (1)] Future Scheduled BMI FOLLOW UP PLAN [employer] [facility] [code = BMI FOLLOW UP of Med icine PLAN] Future Scheduled Hepatitis C screening [employer] [facility] (procedure) [code = of Medic ine 142725617] Future Scheduled Human immunodeficiency [employer] virus screening of Medicine (procedure) [code = 377231012] Future Scheduled ZOSTER VACCINE (1 of 2) [facility] [employer] Test [code = ZOSTER VACCINE of Me dicine (1 of 2)] Future Scheduled MEDICARE AWV (Initial) [employer] [facility] [code = MEDICARE AWV of Medi cine (Initial)] Future Scheduled FLU VACCINE > 6 MONTHS [employer] [facility] [code = FLU VACCINE > 6 of M edicine MONTHS] Encounters Start End Encounter Admission Attending Care Care Encounter Source Date/Time Date/Time Type Type Clinicians Facility Department ID 2021-12-12 Outpatient GERALD Barrera [facility] [id number] Common 08:11:02 [facility] 2022-02-07 2022-02-07 [facility] [id number] [place] 00:00:00 00:00:00 HOANG 475 Method i 2022-02-07 2022-02-07 [facility] [id number] [place] 00:00:00 00:00:00 HOANG 910 Method i 2021-11-15 2021-11-15 [facility] [id number] [place] 00:00:00 00:00:00 HOANG 987 Method i 2021-11-15 2021-11-15 [facility] [id number] [place] 00:00:00 00:00:00 HOANG 552 Method i 2021-08-15 2021-08-15 Office ROLF Davis 1.2.840.114 [id number] 84 [facility] [place] 16:15:00 16:47:08 Visit Erendira Damon AMBULATOR 350.1.13.21 College Y 0.2.7.2.686 of [id number] Medi ayo 800 e 2021-05-09 2021-05-09 Office ROLF DAVIS 1.2.840.114 [id number] 03 [facility] [place] 08:06:46 10:33:51 Visit ERENDIRA AMBULATOR 350.1.13.21 College Y 0.2.7.2.686 of [id number] Medi ayo 800 e 2021-03-14 2021-03-14 Office ROLF Davis 1.2.840.114 [id number] [facility] [place] 09:44:19 10:10:00 Visit Erendira Nelson AMBULATOR 350.1.13.21 College Y 0.2.7.2.686 of [id number] Medi ayo 800 e 2021-02-21 2021-02-21 Office ROLF Davis 1.2.840.114 [id number] 11 [facility] [place] 10:22:27 10:51:37 Visit Erendira Damon AMBULATOR 350.1.13.21 College Y 0.2.7.2.686 of [id number] [facility] ayo 800 e 2021-02-15 2021-02-15 Office ROLF Davis 1.2.840.114 [id number] 89 [facility] [place] 09:22:41 09:57:26 Visit Erendira Damon AMBULATOR 350.1.13.21 College Y 0.2.7.2.686 of [id number] [facility] ayo 800 e 2021-01-24 2021-01-24 Orders David Bae 1.2.840.1 [id number] 2100 [id number] Methodi 00:00:00 00:00:[address] 3.430.2.7 Hospit a .3.565633 l .8 2021-01-10 2021-01-10 Leslie Pryor 1.2.840.1 [id number] 5585 Methodi 00:00:00 00:00:00 Hoang Becker [address]26.1.[address] 3.430.2.7 Hospit a .3.015682 l .8 2020-11-17 2020-11-17 Leslie Pryor 1.2.840.1 [id number] Methodi 00:00:00 00:00:00 Hoang Becker [address]108.1.[address] 3.430.2.7 Hospit a .3.762485 l .8 2020-11-16 2020-11-16 Telephone David Bae 1.2.840.1 [id number] Methodi 00:00:00 00:00:[address] 3.430.2.7 Hospit a .3.024357 l .8 2020-11-16 2020-11-16 Orders David Bae 1.2.840.1 [id number] 2100 [id number] Methodi 00:00:00 00:00:[address] 3.430.2.7 Hospit a .3.694798 l .8 2020-11-15 2020-11-15 Orders KathiaDavid 1.2.840.1 [id number] 2099 [id number] Methodi 00:00:00 00:00:[address] 3.430.2.7 Hospit a .3.608672 l .8 2020-11-02 2020-11-02 Office Darrel 1.2.840.1 [id number] Methodi 08:43:43 10:11:17 Visit Hoang Becker 08563.1.[address] 3.430.2.7 Hospit a .3.839577 l .8 2020-11-02 2020-11-02 Travel 1.2.840.1 1.2.959.696 3804 836214 Methodi 00:00:00 00:00:[address] 3.430.2.7 0.2.7.3.698 Ho spita .3.141970 084.8 l .8 2020-10-18 2020-10-18 Office MarbinROLF 1.2.840.114 [id number] 09:37:21 10:18:37 Visit Erendira Damon AMBULATOR 350.1.13.21 Y 0.2.7.2.[id number] [facility] 2020-10-18 2020-10-18 Office MarbinROLF 1.2.840.[id number] [place] [address] 09:37:21 10:18:37 Visit Erendira Damon AMBULATOR 350.1.13.21 College Y 0.2.7.2.686 of [id number] [facility] 800 e 2020-10-15 2020-10-15 Refill Darrel, 1.2.840.1 [id number] 5134 Methodi 00:00:00 00:00:00 Hoang Becker [address]7512.1.[address] 3.430.2.7 Hospit a .3.607651 l .8 2020-10-05 2020-10-05 Travel 1.2.840.1 1.2.983.650 1105 [id number] Methodi 00:00:00 00:00:[address] 3.430.2.7 0.2.7.3.698 Ho spita .3.372054 084.8 l .8 2020-10-03 2020-10-03 Travel 1.2.840.1 1.2.258.098 9496 499194 Methodi 00:00:00 00:00:[address] 3.430.2.7 0.2.7.3.698 Ho spita .3.565882 084.8 l .8 2020-09-28 2020-09-28 Office ROLF aDvis 1.2.840.114 [id number] 09:57:05 10:27:34 Visit Erendira Damon AMBULATOR 350.1.13.21 Y 0.2.7.2.[id number] [facility] 2020-09-28 2020-09-28 Office ROLF Davis 1.2.840.[id number] [place] [address] 09:57:05 10:27:34 Visit Erendira Damon AMBULATOR 350.1.13.21 College Y 0.2.7.2.686 of [id number] [facility] 800 e 2020-09-26 2020-09-26 Refill Darrel 1.2.840.1 [id number] 1091 Methodi 00:00:00 00:00:00 Hoang Becker 92479.1.[address] 3.430.2.7 Hospit a .3.393772 l .8 2020-09-19 2020-09-19 Telephone David Bae 1.2.840.1 [id number] 21 [id number] Methodi 00:00:00 00:00:[address] 3.430.2.7 Hospit a .3.886584 l .8 2020-09-18 2020-09-18 Office ROLF Davis 1.2.840.114 [id number] 11:46:12 13:14:55 Visit Erendira Damon AMBULATOR 350.1.13.21 Y 0.2.7.2.686 [id number] 800 2020-09-18 2020-09-18 Office ROLF Davis 1.2.840.[id number] [place] [address] 11:46:12 13:14:55 Visit Erendira Damon AMBULATOR 350.1.13.21 College Y 0.2.7.2.686 of [id number] [facility] ayo 800 e 2020-06-27 2020-06-27 Refradha Pryor 1.2.840.1 [id number] 6508 Methodi 00:00:00 00:00:00 Hoang Becker [address]28.1.[address] 3.430.2.7 Hospit a .3.964414 l .8 2020-05-03 2020-05-03 Telephone Shine Padilla 1.2.840.1 [id number] Methodi 00:00:00 00:00:[address] 3.430.2.7 Hospit a .3.433687 l .8 2020-04-13 2020-04-13 Office ROLF Davis 1.2.840.114 [id number] 08:11:31 08:48:37 Visit Erendira Damon AMBULATOR 350.1.13.21 Y 0.2.7.2.686 [id number] 800 2020-04-13 2020-04-13 Office ROLF Davis 1.2.840.[id number] [place] [address] 08:11:31 08:48:37 Visit Erendira Damon AMBULATOR 350.1.13.21 College Y 0.2.7.2.686 of [id number] [facility] 800 e 2020-04-13 2020-04-13 Telephone David Bae 1.2.840.1 [id number] 21 [id number] Methodi 00:00:00 00:00:[address] 3.430.2.7 Hospit a .3.675224 l .8 2020-03-21 2020-03-21 Office Shine Padilla 1.2.840.1 [id number] 21 [id number] Methodi 11:01:54 13:12:23 Visit Dl 86856.1.[address] 3.430.2.7 Hospit a .3.315301 l .8 2020-03-21 2020-03-21 Travel 1.2.840.1 1.2.746.037 8192 [id number] Methodi 00:00:00 00:00:[address] 3.430.2.7 0.2.7.3.698 Ho spita .3.878684 084.8 l .8 2020-03-21 2020-03-21 Refill Pryor, 1.2.840.1 [id number] 5253 Methodi 00:00:00 00:00:00 Hoang Cas[address]Gulshan [address] 3.430.2.7 Hospit a .3.156401 l .8 2019-12-09 2019-12-09 Office ROLF Davis 1.2.840.114 [id number] 08:28:26 08:55:18 Visit Erendira Damon AMBULATOR 350.1.13.21 Y 0.2.7.2.686 [id number] 800 2019-12-09 2019-12-09 Office ROLF Davis 1.2.840.[id number] [place] [address] 08:28:26 08:55:18 Visit Erendira Damon AMBULATOR 350.1.13.21 College Y 0.2.7.2.686 of [phone] [facility] 800 e 2019-11-18 2019-11-18 Office ROLF Davis [id number] [id number] 21 08:17:36 09:24:25 Visit Erendira Damon AMBULATOR 350.1.13.21 Y 0.2.7.2.686 [id number] 800 2019-11-18 2019-11-18 Office ROLF Davis 1.2.840.[id number] [place] [address] 08:17:36 09:24:25 Visit Erendira Damon AMBULATOR 350.1.13.21 College Y 0.2.7.2.686 of [id number] [facility] 800 e 2019-09-01 2019-09-01 Office ROLF Davis 1.2.840.114 [id number] 10:24:01 11:00:22 Visit Erendira Nelson AMBULATOR 350.1.13.21 Y 0.2.7.2.686 [id number] 800 2019-09-01 2019-09-01 Office ROLF Davis 1.2.840.[id number] [place] [address] 10:24:01 11:00:22 Visit Erendira Nelson AMBULATOR 350.1.13.21 College Y 0.2.7.2.686 of [id number] [facility] 800 e 2019-04-12 2019-04-12 Office DavisROLF velez 1.2.840.114 [id number] 09:36:17 10:16:57 Visit Erendira Nelson AMBULATOR 350.1.13.21 Y [id number] [facility] 2019-04-12 2019-04-12 Office MarbinROLF [id number] [place] [address] 09:36:17 10:16:57 Visit Erendira Nelson AMBULATOR [id number] College Y [id number] of [id number] [facility] 800 e 2019-03-11 2019-03-11 Office ROLF Davis [id number] 09:31:49 10:11:02 Visit Erendira Nelson AMBULATOR [id number] Y [id number] 800 2019-03-11 2019-03-11 Office ROLF Davis [id number] [place] [address] 09:31:49 10:11:02 Visit Erendira Nelson AMBULATOR [id number] College Y [id number] of [id number] [facility] 800 e 2016-12-19 2017-01-18 Tots nullFlavo TIRR [id number] [facility] 13:00:00 04:59:00 [facility] 04 scott Soliz 2016-11-07 2016-12-07 Tots nullFlavo TIRR [id number] [facility] 13:00:00 04:59:00 [facility] 03 scott Soliz 2016-10-03 2016-11-02 Tots nullFlavo TIRR [id number] [facility] 13:00:00 04:59:00 Therapy r [facility] 02 Martínez Leonann 2016-09-01 2016-10-01 Tots nullFlavo TIRR [id number] [facility] 12:00:00 04:59:00 Therapy r [facility] 01 scott Soliz 2016-07-31 2016-08-30 Tots nullFlavo TIRR [id number] [facility] 14:00:00 05:59:00 Therapy r [facility] Martínez Leonann 2016-06-30 2016-07-30 Tots nullFlavo TIRR [id number] [facility] 14:00:00 05:59:00 Therapy [facility] [place] Results Test Description Test Time Test Comments [...] impression (test code = 273) Atrial fibrillation- [facility]
[2022-02-10] MEDS ORDERED: OXYMETAZOLINE HCL 0.05% 15ML NAS ONE (10:10)
--- NOTE | 2022-02-10 12:03 | EDPHYS ---
Physician Documentation [facility] Name: Kervin Martinez Age: 66 yrs Sex: Male : 1955 Arrival Date: 02/10/2022 Time: 09:27 Bed 6 Private MD: Javan Barrera B ED Physician Evan Peña HPI: 02/10 11:56 This 66 yrs old Male presents to ER via Ambulatory with complaints of Nose rn Bleed. 11:56 The patient presents with a nose bleed, occurred from an unknown cause, causative rn factors include: unknown, and the bleeding is not resolved and continues in ER. Onset: The symptoms/episode began/occurred this morning. Modifying factors: The symptoms are alleviated by pressure, the symptoms are aggravated by blowing nose. Associated signs and symptoms: Loss of consciousness: the patient experienced no loss of consciousness, Pertinent positives: bleeding, Pertinent negatives: chest pain, fever, shortness of breath. Severity of symptoms: At their worst the symptoms were moderate in the emergency department the symptoms have improved. The patient has experienced similar episodes in the past. The patient has not recently seen a physician. 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 NO fever or trauma. . Historical: - Allergies: 09:52 No Known Allergies; ss - PMHx: 09:52 Atrial Fib; CVA; Diabetes - IDDM; High Cholesterol; Hypertension; ss - Immunization history:: Client reports having NOT received the Covid vaccine. - Social history:: Smoking status: Patient denies any tobacco usage or history of. - Family history:: not pertinent. - Hospitalizations: : No recent hospitalization is reported. ROS: 11:56 Constitutional: Negative for fever, chills, and weight loss, ENT: + epistaxis pediatric rn: Negative for chest pain, palpitations, and edema, Respiratory: Negative for shortness of breath, cough, wheezing, and pleuritic chest pain. Exam: 11:56 Constitutional: This is a well developed, well nourished patient who is awake, alert, rn and in no acute distress. Head/Face: Normocephalic, atraumatic. ENT: + right nare epistaxis without foreign body or evidence of trauma. no focal area to cauterize. Vital Signs: 09:52 Pulse 64; Resp 18; Temp 98.1(TE); Pulse Ox 98% on R/A; Weight 105.23 kg; Height 5 ft. 8 ss in. (172.72 cm); Pain 0/10; 09:54 BP 144 / 80; ss 10:00 BP 136 / 86; Pulse 62; Pulse Ox 99% on R/A; jg9 12:15 BP 132 / 68; Pulse 58; Resp 16 S; Pulse Ox 99% on R/A; jg9 09:52 Body Mass Index 35.28 (105.23 kg, 172.72 cm) ss MDM: 09:34 Patient medically screened. rn 10:32 ED course: Pt bloew nose and evacuated large clot, re-examined and little to no rn bleeding at this time. clamp placed on nose, will reeval if needs further treatment such as rhino-rocket.. 11:56 Differential diagnosis: spontaneous epistaxis. Data reviewed: vital signs, nurses rn notes, and as a result, I will discharge patient. Counseling: I had a detailed discussion with the patient and/or guardian regarding: the historical points, exam findings, and any diagnostic results supporting the discharge/admit diagnosis, the need for outpatient follow up, to return to the emergency department if symptoms worsen or persist or if there are any questions or concerns that arise at home. Response to treatment: the patient's symptoms have resolved after treatment, and as a result, I will discharge patient. ED course: Epistaxis resolved. Pt called his ENT and has appointment tomorrow. Offered rhino rocket to make sure doesn't rebleed, declines after speaking to his . Will dc home with return precautions.. 02/10 09:56 Order name: Behzad. Order: nasal clamp for 20 min; Complete Time: 10:07 rn Administered Medications: 10:07 Drug: Afrin (oxymetazoline) Drops (0.05 %) 2 sprays Route: Intranasal; Site: right nare;jg9 11:00 Follow up: Response: No adverse reaction jg9 Disposition Summary: 02/10/22 12:03 Discharge Ordered Location: Home rn Problem: new rn Symptoms: are resolved rn Condition: Stable rn Diagnosis - Epistaxis rn Followup: rn - With: Private Physician - When: As needed - Reason: Recheck today's complaints, Re-evaluation by your physician Discharge Instructions: - Discharge Summary Sheet rn - Nosebleed, Adult rn Forms: - Medication Reconciliation Form rn - Thank You Letter rn - Antibiotic learning analyst - Prescription Opioid Use rn Signatures: Evan Peña MD MD rn Smirch, Shelby, RN RN Leslye Ortega RN RN jg9
--- NOTE | 2022-02-10 12:03 | ER ---
Nurse's Notes [facility] Name: Kervin Martinez Age: 66 yrs Sex: Male : 1955 Arrival Date: 02/10/2022 Time: 09:27 Bed 6 Private MD: Javan Barrera B Diagnosis: Epistaxis Presentation: 02/10 09:51 Chief complaint: Patient states: Nose bleed that began last night, worse this morning. ss Pt reports that this has occurred before in the past and had to have it cauterized. Coronavirus screen: Client denies travel out of the [place] in the last 14 days. Ebola Screen: Patient denies exposure to infectious person. Patient denies travel to an Ebola-affected area in the 21 days before illness onset. Initial Sepsis Screen: Does the patient meet any 2 criteria? No. Patient's initial sepsis screen is negative. Does the patient have a suspected source of infection? No. Patient's initial sepsis screen is negative. Risk Assessment: Do you want to hurt yourself or someone else? Patient reports no desire to harm self or others. Onset of symptoms was February 09, 2022. 09:51 Method Of Arrival: Ambulatory ss 09:51 Acuity: PRABHAKAR 3 ss Triage Assessment: 10:00 General: Appears uncomfortable, Behavior is calm, cooperative. jg9 Historical: - Allergies: 09:52 No Known Allergies; ss - PMHx: 09:52 Atrial Fib; CVA; Diabetes - IDDM; High Cholesterol; Hypertension; ss - Immunization history:: Client reports having NOT received the Covid vaccine. - Social history:: Smoking status: Patient denies any tobacco usage or history of. - Family history:: not pertinent. - Hospitalizations: : No recent hospitalization is reported. Screenin:15 Abuse screen: Denies threats or abuse. Denies injuries from another. Nutritional jg9 screening: No deficits noted. Tuberculosis screening: No symptoms or risk factors identified. Fall Risk None identified. Assessment: 10:00 Reassessment: No changes from previously documented assessment. Patient and/or family jg9 updated on plan of care and expected duration. Pain level reassessed. Patient is alert, oriented x 3, equal unlabored respirations, skin warm/dry/pink. 10:14 Reassessment: patient continuing to experience nose bleed from right naraes-clamp in jg9 place, nose drops administered. Pain: Denies pain. 12:00 Reassessment: Patient and/or family updated on plan of care and expected duration. Pain jg9 level reassessed. bleeding has seemed to stop Patient states feeling better. Patient states symptoms have improved. Vital Signs: 09:52 Pulse 64; Resp 18; Temp 98.1(TE); Pulse Ox 98% on R/A; Weight 105.23 kg; Height 5 ft. 8 ss in. (172.72 cm); Pain 0/10; 09:54 BP 144 / 80; ss 10:00 BP 136 / 86; Pulse 62; Pulse Ox 99% on R/A; jg9 12:15 BP 132 / 68; Pulse 58; Resp 16 S; Pulse Ox 99% on R/A; jg9 09:52 Body Mass Index 35.28 (105.23 kg, 172.72 cm) ss ED Course: 09:27 Patient arrived in ED. rg4 09:28 Javan Barrera MD is Private Physician. rg4 09:34 Evan Peña MD is Attending Physician. rn 09:52 Triage completed. ss 09:52 Arm band placed on right wrist. ss 10:00 No apparent distress. Resting quietly. jg9 10:13 Leslye Packer, RN is Primary Nurse. jg9 10:15 Patient has correct armband on for positive identification. Call light in reach. jg9 10:29 ED physician to see patient. jg9 12:21 No provider procedures requiring assistance completed. jg9 12:21 Patient did not have IV access during this emergency room visit. jg9 Administered Medications: 10:07 Drug: Afrin (oxymetazoline) Drops (0.05 %) 2 sprays Route: Intranasal; Site: right nare;jg9 11:00 Follow up: Response: No adverse reaction jg9 Medication: 12:21 VIS not applicable for this client. jg9 Outcome: 12:03 Discharge ordered by . rn 12:21 Discharged to home ambulatory. jg9 12:21 Condition: improved 12:21 Discharge instructions given to patient, Instructed on discharge instructions, follow up and referral plans. Demonstrated understanding of instructions, follow-up care. 12:21 Patient left the ED. jg9 Signatures: Evan Peña MD MD rn Smirch, Shelby RN RN Jessica Hall rg4 Leslye Packer RN RN jg9
[2022-02-10 12:36] VITALS: TEMP 98.1
[2022-02-10 12:40] VITALS: O2SAT 99
[2022-02-10 12:42] VITALS: BP 132/68
== END 2022-02-10 12:21 | disposition home or self-care (01) ==
LOC: ER 09:24
DX: R04.0 Epistaxis (principal); Z85.22 Personal history of malignant neoplasm of nasal cavities, middle ear, and accessory sinuses; E11.9 Type 2 diabetes mellitus without complications; I10 Essential (primary) hypertension; I48.91 Unspecified atrial fibrillation; Z79.01 Long term (current) use of anticoagulants; Z86.73 Personal history of transient ischemic attack (TIA), and cerebral infarction without residual deficits
CPT/HCPCS: 99283